=== PATIENT | female | born 1945 | race Caucasian/White ===

== ENCOUNTER → 2023-02-07 14:42 | Outpatient (BNVA) | payer MEDICARE, SELFPAY | PROVIDERS: PCP Family Medicine; Referring Provider Family Medicine; Visit Provider Student in an Organized Health Care Education/Training Program | DX: M17.11 Unilateral primary osteoarthritis, right knee (principal); M17.12 Unilateral primary osteoarthritis, left knee; M21.061 Valgus deformity, not elsewhere classified, right knee; M21.062 Valgus deformity, not elsewhere classified, left knee; Z96.642 Presence of left artificial hip joint | CPT/HCPCS: 99203 ==

== ENCOUNTER 2023-03-31 02:09 | Outpatient (CLI) | payer MEDICARE, SELFPAY ==
[2023-03-31 14:40] LABS: HCT 39.9 % (36.0-46.0); HGB 14.1 g/dL (11.2-15.7); MCH 36.6 pg (27.0-33.0); MCHC 35.3 % (32.0-36.0); MCV 104 fL (80-95); MPV 11.2 fL (8.0-11.0); Platelet Count 220 10^3/uL (130-400); RBC 3.85 10^6/uL (3.93-5.22); RDW 12.1 % (11.7-14.6); WBC 5.74 10^3/uL (4.4-10.8)
[2023-03-31 14:49] LABS: BUN 15 mg/dL (7-18); CREATININE 0.7 mg/dL (0.55-1.02); Calcium 10.3 mg/dL (8.5-10.1); Chloride 106 mmol/L (98-107); Estimated GFR 89.58 (mL/min/1.73m2); Glucose 99 mg/dL (74-106); Potassium 4.4 mmol/L (3.5-5.1); Sodium 143 mmol/L (136-145)
== END 2023-03-31 02:10 | disposition home or self-care (01) ==
PROVIDERS: PCP Family Medicine; Visit Provider Student in an Organized Health Care Education/Training Program
DX: M17.0 Bilateral primary osteoarthritis of knee (principal); Z01.818 Encounter for other preprocedural examination; M21.062 Valgus deformity, not elsewhere classified, left knee
CPT/HCPCS: 36415; 80048; 85027

== ENCOUNTER 2023-03-31 13:26 | Outpatient (CLI) | payer MEDICARE, SELFPAY ==
--- NOTE | 2023-03-31 12:15 | DI.RAD_ITS ---
Exam(s) XR KNEE LT 1V XR STANDING ALIGNMENT EXAM: XR STANDING ALIGNMENT and XR knee LT 1 V CLINICAL HISTORY: PRE OP L TKA. TECHNIQUE: 2D digital imaging was performed. Five images were obtained. COMPARISON: CR ORTHO KNEE LASHONDA 4+VIEWS from 12/09/2021 CR XR KNEE LT 1V from 03/31/2023 FINDINGS: BONES: The patient has a left total hip replacement which appears in good position. Mild degenerativ e changes are seen in the right hip. Coarse calcifications are seen in the pelvis likely reflecting a degenerating uterine fibroid. There are marked degenerative changes of the knees bilaterally julieta cterized by joint space narrowing and periarticular spurring. The findings are most marked in the la teral femoral tibial joints of both knees. There is a small joint effusion in the left knee. Joint space narrowing and periarticular spurring is also seen at the patellofemoral joint. There is bilate ral genu varus. The ankles are well maintained.There is no significant leg length discrepancy. SOFT TISSUE: Normal. IMPRESSION: Marked osteoarthritis of the knees bilaterally. DATA REPOSITORY: RADIATION DOSE DELIVERED:
== END 2023-03-31 13:27 | disposition home or self-care (01) ==
LOC: DIORS 13:26
PROVIDERS: PCP Family Medicine; Visit Provider Physician Assistant
DX: M17.12 Unilateral primary osteoarthritis, left knee (principal); Z01.818 Encounter for other preprocedural examination
CPT/HCPCS: 73560; 77073

== ENCOUNTER → 2023-04-01 10:52 | Outpatient (CLI) | payer MEDICARE, SELFPAY ==
--- NOTE | 2023-04-01 09:00 | DI.US_ITS ---
APPROVED REPORT EXAM: Comprehensive 2D, Doppler, and color-flow Echocardiogram Patient Location: Out-Patient [facility] Feeder: Wilfrido Alcantara RDCS (AE) Indications: preop, murmur Other Information Study Quality: Good Conclusion Normal left ventricular wall thickness and chamber size. Ejection fraction is 55%. Wall motion is n ormal Normal right ventricular size and systolic function Both atria are moderately dilated Trileaflet aortic valve without stenosis or regurgitation Mildly thickened mitral leaflets with systolic prolapse and moderate to severe regurgitation Normal tricuspid valve with moderate regurgitation. Estimated right ventricular systolic pressure is 27 mmHg Small pericardial effusion Wall motion Left Ventricle The left ventricle is normal size. Left ventricular systolic function is normal Borderline concentric left ventricular hypertrophy. There is normal LV segmental wall motion. There is no ventricular sept al defect visualized. LVEF is 55%. Right Ventricle The right ventricle is normal size. The right ventricular systolic function is normal. The RVSP is 26 .7 mmHg. Atria Left atrium is moderately dilated. Right atrium is moderately dilated. The interatrial septum is inta ct with no evidence for an atrial septal defect. Aortic Valve The aortic valve is normal in structure. Aortic valve is trileaflet. There is no aortic valvular sten osis. No aortic regurgitation is present. Mitral Valve mildly thickened mitral leaflets No evidence of mitral valve stenosis. Moderate to severe mitral regu rgitation Mild mitral valve prolapse. Tricuspid Valve The tricuspid valve is normal in structure. There is no tricuspid valve stenosis. Moderate tricuspid regurgitation. Pulmonic Valve The pulmonary valve is normal in structure. There is no pulmonic valvular stenosis. Mild pulmonic reg urgitation. Great Vessels The aortic root is normal in size. The ascending aorta is mildly dilated. Aortic arch is normal in ca liber. IVC is normal in size and collapses >50% with inspiration. Pericardium Small pericardial effusion. 2D Dimensions IVSD d PLAX 0.97 cm F: 0.6-1.0 Ao Root d 3.14 cm F: 2.7 - 3.3 LVPW d PLAX 1.04 cm F: 0.6 - 1.0 Ao Asc Diam d 3.47 cm F: 2.3 - 3.1 LVID d PLAX 4.90 cm F: 3.8 - 5.2 LVDs 3.53 cm F: 2.2 - 3.5 LV EF Teichholz 53.9 % FS 27.89 % LV EDV (Teich) 112.9 mL LV ESV (Teich) 52.1 mL Stroke Vol Index (Teich) 31.03 M-Mode TAPSE 1.99 cm (M/F) >1.7 Auto EF LV EDV A4C 113.8 mL LV EDV A2C 97.2 mL LV EDV BP 109.3 mL LV ESV A4C 56.8 mL LV ESV A2C 49.1 mL LV ESV BP 51.9 mL LVEF(%) A4C 50.1 % LVEF(%) A2C 49.5 % LVEF(%) BP 52.5 % LV SV A4C 57.0 ml LV SV A2C 48.1 ml LV SV BP 57.3 ml LV CO A4C 5.0 L/min LV CO A2C 5.0 L/min LV CO BP 5.0 L/min HR A4C 87.81 BPM HR A2C 103.46 BPM LV EDV Index (BP) LA Volume LA Length A4C 6.9 cm LA Length A2C LA Area A4C s 29.51 cm2 LA Area A2C s LA Vol A4C A-L 106.75 mL LA Vol A2C A-L LA Vol Biplane A-L LA Vol A4C MOD 99.5 mL LA Vol A2C MOD LA Vol BP MOD RA Volume RA Area A4C 21.2 cm2 RA ESV A4C (A-L) 62.4mL RA Vol/BSA A4C A-L RA Length A4C 6.1 cm RA ESV A4C (MOD) 59.9mL LV Diastology MV E' medial 0.113 (>0.07 m/s) MV E Vmax 0.94 (0.4-1.3 m/s) MV E/E' MED 8.32 (<14) MV E' lateral 0.137 (>0.1 m/s) MV E/E' LAT 6.86 (<14) MV E' Average 0.125 m/s MV E/E'(average) 7.52 Aortic Valve AoV Vmax 1.32 m/s LVOT Vmax 0.93 m/s AoV Peak Grad 7.0 mmHg LVOT Peak Grad 3.5 mmHg AoV Area (Vmax) 2.39 cm2 LVOT VTI 0.171 m AoV VTI 0.252 m LVOT Mean Grad 1.6 mmHg AoV Mean Ino. 0.87 m/s LVOT SV 57.83 mL AoV Mean Grad 3.6 mmHg LVOT Diam s 2.05 cm AoV Area (VTI) 2.29 cm2 Velocity Ratio 0.70 Mitral Valve MV DT 149 (160-240 msec) MR Vmax 5.53 m/s MV Vmax TIPS 0.97 m/s MR VTI 1.628 m MV Mean Grad 1.1 (<2mmHg) MR Peak Grad 122.4 mmHg MV VTI 0.261 m MR Mean Grad 92.3 mmHg MR PISA Radius 0.84 cm MR Aliasing Velocity 0.30 m/s Pulmonary Valve PV Vmax 0.76 (0.5-1.5 m/s) RVOT Vmax 0.61 m/s PV Peak Grad 2.3 mmHg RVOT Peak Gr. 1.5 mmHg PV Mean Ino 0.59 m/s RVOT VTI 0.135 m PV Mean Grad 1.5 mmHg RVOT Mean Gr. 0.7 mmHg Tricuspid Valve RA Pressure 3.00 mmHg TR Vmax 2.43 m/s TR Peak Grad 23.7 mmHg RVSP (TR) 26.7 mmHg
== END ==
PROVIDERS: PCP Family Medicine; Visit Provider Physician Assistant
DX: R01.1 Cardiac murmur, unspecified (principal)
CPT/HCPCS: 93306

== ENCOUNTER 2023-04-12 07:19 | Observation (INO) | payer MEDICARE, SELFPAY ==
--- NOTE | 2023-04-05 13:50 | PDOC.ANES ---
Date of service: 04/05/23 Time of Service: 13:50 Anesthesia Note Report Anesthesia Note: Discussed upcoming case with RUKHSANA Galvin who was looking for anesthesia reviewal of this patient given recent ECHO results. Reviewed and discussed ECHO results with Kelli Sharma and Santiago Dior and patient is cleared to proceed for upcoming surgery.
[2023-04-12] VITALS (17 sets, daily range): BP systolic 111–159; BP diastolic 68–106; PULSE 70–88; RESP 14–19; TEMP 36.2–36.8; O2SAT 80–99; BMI 24.0
[2023-04-12] MEDS: Acetaminophen 500 MG TAB 1000 MG PO ×3 (07:33→20:35)
[2023-04-12] MEDS: Gabapentin 300 MG CAP PO ×3 (07:33→20:34)
[2023-04-12] MEDS: Lactated Ringers 1,000 ML 80 ML IV ×2 (07:45→14:07)
--- NOTE | 2023-04-12 07:45 | W.ANESPRE ---
General Info Date of Service Date Performed: 04/12/23 Height: 5 ft 10.5 in Weight: 77 kg Body Mass Index (BMI): 24.0 Surgical Procedure: Operation Date: 04/12/23 09:55 Proposed Procedure Side Surgeon p Knee Total Arthroplasty w/OrthAlign, Cemented PS Left Jones Fragoso MD Actual Procedure Side Surgeon p Knee Total Arthroplasty w/OrthAlign, Cemented PS Left Jones Fragoso MD Pre-Op Diagnosis Post-Op Diagnosis Primary osteoarthritis of left knee Meds Allergies and Home Medications Allergies Allergy/AdvReac Type Severity Reaction Status Date / Time aspirin AdvReac GI BLEEDS Verified 04/12/23 07:27 Home Medication Medication Instructions Recorded ascorbate calcium (vitamin C) 500 500 mg PO DAILY 11/10/22 mg tablet cholecalciferol (vitamin D3) 125 125 mcg PO DAILY 11/10/22 mcg (5,000 unit) capsule ferrous sulfate 325 mg (65 mg 325 mg PO DAILY 11/10/22 iron) tablet lysine 500 mg tablet (L-Lysine) 500 mg PO DAILY 11/10/22 turmeric root extract 500 mg tablet 500 mg PO DAILY 11/10/22 vitamin B complex (B 1 tab PO DAILY 11/10/22 Complex-Vitamin B12 tablet) oxybutynin chloride 5 mg tablet 5 mg PO TID 02/07/23 calcium 600 mg-D3 20 mcg-magnesium 1 tab PO DAILY 03/31/23 40 [id number]-xzim-zinc chew tablet gabapentin 100 mg capsule 300 mg PO TID 03/31/23 garlic 1,000 mg capsule 1,000 mg PO DAILY 03/31/23 vitamin E (dl, acetate) 180 mg 180 mg PO DAILY 03/31/23 (400 unit) capsule acetaminophen 500 mg tablet 1,000 mg PO Q8H PRN pain #90 tabs 04/12/23 aspirin 81 mg tablet,delayed 81 mg PO BID 30 days #60 tabs 04/12/23 release celecoxib 200 mg capsule (Celebrex) 200 mg PO BID PRN #60 caps 04/12/23 dexamethasone 4 mg tablet 4 mg PO DAILY #2 tabs 04/12/23 docusate sodium 100 mg capsule 100 mg PO BID #30 caps 04/12/23 (Colace) oxycodone 5 mg tablet 5 mg PO Q4H PRN #18 tabs 04/12/23 pantoprazole 40 mg tablet,delayed 40 mg PO DAILY #14 tabs 04/12/23 release Current Visit Medications: Current Medications Generic Name Dose Route Start Last Admin Trade Name Taye PRN Reason Stop Dose Admin Acetaminophen 1,000 mg 04/12/23 06:00 04/12/23 07:33 Acetaminophen 500 Mg Tab PO 04/12/23 16:00 1,000 mg PREOP BRIDGER Administration Acetaminophen 1,000 mg 04/12/23 14:00 Acetaminophen 500 Mg Tab PO 05/12/23 13:59 TID BRIDGER Aspirin 81 mg 04/12/23 20:00 Aspirin E.C. 81 Mg Tabec PO 05/12/23 19:59 BID BRIDGER Celecoxib 200 mg 04/12/23 08:30 Celecoxib 200 Mg Cap PO 05/12/23 20:00 BID BRIDGER Dexamethasone 4 mg 04/13/23 08:30 Dexamethasone 4 Mg Tab PO 04/14/23 08:31 DAILY BRIDGER Docusate Sodium 100 mg 04/12/23 07:19 Docusate Sodium 100 Mg Cap PO 05/12/23 07:18 BID PRN PRN Constipation Gabapentin 300 mg 04/12/23 06:00 04/12/23 07:33 Gabapentin 300 Mg Cap PO 04/12/23 16:00 300 mg PREOP BRIDGER Administration Gabapentin 300 mg 04/12/23 22:00 Gabapentin 300 Mg Cap PO 05/12/23 21:59 HS BRIDGER Hydromorphone HCl 0.5 mg 04/12/23 07:19 Hydromorphone 2 Mg/Ml Syr IVP 05/12/23 07:18 Q2H PRN PRN Tranexamic Acid 1,000 mg/ 60 mls @ 360 mls/hr 04/12/23 06:00 Sodium Chloride IVPB 04/12/23 16:00 PREOP BRIDGER Ringer's Solution 1,000 mls @ 80 mls/hr 04/12/23 06:00 IV 05/11/23 23:59 INFUSION BRIDGER Cefazolin Sodium/Dextrose 2 gm in 50 mls @ 100 mls/hr 04/12/23 06:00 Ancef Duplex IVPB 05/11/23 23:59 PREOP BRIDGER Cefazolin Sodium/Dextrose 1 gm in 50 mls @ 100 mls/hr 04/12/23 08:00 Ancef Duplex IVPB 04/13/23 00:29 Q8H BRIDGER IV Miscellaneous Supplies 1 each 04/12/23 06:00 Iv Access IV 05/11/23 23:59 DIRECTED BRIDGER Ondansetron HCl 4 mg 04/12/23 07:19 Ondansetron 4 Mg/2 Ml Vial IVP 05/12/23 07:18 Q6H PRN PRN Nausea Oxycodone HCl 0 mg 04/12/23 07:19 Oxycodone 5 Mg Tab PO 05/12/23 07:18 Q3H PRN PRN Pain Pantoprazole Sodium 40 mg 04/13/23 07:30 Pantoprazole 40 Mg Tabcr PO 05/13/23 07:29 DAILY@0730 BRIDGER Polyethylene Glycol 17 gm 04/12/23 07:19 Polyethylene Glycol 3350 17 Gm Packet PO 05/12/23 07:18 BID PRN PRN Constipation Sodium Chloride 0 ml 04/12/23 06:00 Normal Saline Flush 10 Ml Syr IV 05/11/23 23:59 PRN PRN Sodium Chloride 0 ml 04/12/23 06:00 Normal Saline 10 Ml Vial IJ 05/11/23 23:59 DIRECTED PRN Sterile Water 0 ml 04/12/23 06:00 Water,Injection,Sterile 10 Ml Vial IJ 05/11/23 23:59 DIRECTED PRN PFSH Active Problems Active Problems: Problem Status Onset Code Migraines G43.909 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 genu valgum of left knee M21.062 Primary osteoarthritis of left knee M17.12 Osteoarthritis of right knee M17.11 Bilateral primary osteoarthritis of knee M17.0 Medical History Medical History Dislocation of left ankle joint with reported fracture of the left tibia treated conservatively Idiopathic peripheral neuropathy Bilateral Ulcerative colitis Denies any issues for the past 20 years; 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 Varicose veins of legs Surgical History Surgical History History of hip replacement, total DOS 02/19/20 History of laparoscopic appendectomy DOS 04/10/19 Tobacco Smoking/Tobacco Use Status: Never Alcohol Alcohol Intake: never Substance Use Substance use: Never Substance use type: does not use Vital Signs and Lab Results Vital Signs Most Recent Vital Signs in EMR: Most Recent Vital Signs Temp Pulse Resp BP Pulse Ox 36.7 C 71 17 159/79 H 96 04/12/23 07:11 04/12/23 07:11 04/12/23 07:11 04/12/23 07:11 04/12/23 07:11 Lab Results Blood Type / Crossmatch: No Data to Display Complete Blood Count: White Blood Count 5.74 10^3/uL (4.4-10.8) 03/31/23 14:15 Red Blood Count 3.85 10^6/uL (3.93-5.22) L 03/31/23 14:15 Hemoglobin 14.1 g/dL (11.2-15.7) 03/31/23 14:15 Hematocrit 39.9 % (36.0-46.0) 03/31/23 14:15 Platelet Count 220 10^3/uL (130-400) 03/31/23 14:15 Complete Metabolic Panel: Sodium 143 mmol/L (136-145) 03/31/23 14:15 Potassium 4.4 mmol/L (3.5-5.1) 03/31/23 14:15 Chloride 106 mmol/L (98-107) 03/31/23 14:15 Carbon Dioxide 29.0 mmol/L (21.0-32.0) 03/31/23 14:15 BUN 15 mg/dL (7-18) 03/31/23 14:15 Creatinine 0.7 mg/dL (0.55-1.02) 03/31/23 14:15 Est GFR (CKD-EPI 2020) 89.58 (mL/min/1.73m2) 03/31/23 14:15 Calcium 10.3 mg/dL (8.5-10.1) H 03/31/23 14:15 Glucose 99 mg/dL (74-106) 03/31/23 14:15 Liver Function Panel: No Data to Display Coagulation Panel: No Data to Display Cardiac Panel: No Data to Display Arterial Blood Gas: No Data to Display Venous Blood Gas: No Data to Display Pancreas Panel: No Data to Display Thyroid Panel: No Data to Display Infectious Disease: No Data to Display Blood Cultures: No Data to Display Toxicology Panel: No Data to Display Imaging and Studies Imaging and Studies Study information below may be from another EMR and interpreted by another provider. Please see original notes in EMR for more complete details. Echocardiogram Summary: Conclusion Normal left ventricular wall thickness and chamber size. Ejection fraction is 55%. Wall motion is normal Normal right ventricular size and systolic function Both atria are moderately dilated Trileaflet aortic valve without stenosis or regurgitation Mildly thickened mitral leaflets with systolic prolapse and moderate to severe regurgitation Normal tricuspid valve with moderate regurgitation. Estimated right ventricular systolic pressure is 27 mmHg Small pericardial effusion 04/01/23 Anesthesia Assessment and Plan Anesthesia History Personal History: No History of Anesthesia Complications Family History: No Family History of Anesthesia Complications Exercise Tolerance Exercise Tolerance: Metabolic Equivalents>4 Pertinent Negatives Pertinent Negatives: No Symptoms of GERD, No Major Cardiovascular Symptoms or Complaints, No Major Pulmonary Symptoms or Complaints and No History of CVA/TIA Cardiac & Pulmonary Exam Cardiac Exam: Normal S1/S2 Heart Sounds Pulmonary Exam: Clear Bilateral Breath Sounds Implantable Cardiac Device Does patient have a Pacemaker or an ICD?: No Airway Exam Known Difficult Airway: No Mallampati Class: 1 Mouth Opening: Normal (> 3cm) Thyromental Distance: Greater than 3 cm Neck Range of Motion: Full ROM Neck Circumference: Normal Teeth Condition: Normal Dentition ASA Classification ASA Score: ASA 2 Emergency Case?: No NPO Status NPO Status: NPO Clears >2 hours, Solids >8 hours Anesthesia Plan Resuscitation Status: Full Code Anesthesia Technique: Spinal Anesthesia Airway Planned: Natural Airway Pain Management: Surgeon and patient request nerve block Monitors Used: Standard Monitors Preoperative Comments:: Noted occ PVC and PACs on preop ECG reading
--- NOTE | 2023-04-12 08:25 | W.ANESNERVE ---
Nerve Block Single Injection Procedure Date and Time Date Performed: 04/12/23 Procedure Start: 07:55 Location Where Procedure Performed Procedure Location: Day Surgery Unit Reason Performed: Postoperative Analgesia Requesting Provider: Jones Fragoso Timeout Performed Timeout Performed: Yes Monitoring Used ECG, Blood Pressure, SpO2 and See EMR for corresponding vital signs Sterility Sterility: Hand Hygiene, Surgical Cap, Surgical Mask, Sterile Gloves, Sterile Drape/Sheet and Chlorhexidine Sedation Given During Procedure Sedation Given (Indicate Dose Given): No Sedation given Patient Mental Status Patient Mental Status: Awake Nerve Block 1st Nerve Block: Laterality: Left Block Type: Adductor Canal Ultrasound Image Saved?: Yes Needle / Catheter Used: 100mm SonoPlex II Local Anesthetic Bolus (Indicate Dose Given): Lidocaine used for local infiltration of skin, Injected in 3-5ml increments after negative blood aspiration and Bupivacaine 0.25% Dose:: 15 ml Additives (Indicate Dose Given): None Ultrasound: Sterile probe cover and gel used Nerve Stimulator: Not Used Paresthesia: None Procedure Tolerated: No Complications and Patient tolerated well Procedure Outcome: Successful Performed By: Jie Dior
[2023-04-12] MEDS: ceFAZolin 2 GM/50 ML BAG IVPB (08:48)
--- NOTE | 2023-04-12 09:45 | RT.EKG_ITS ---
APPROVED REPORT Exam: Resting ECG Reason for Exam: Irregular heart rate intraop Patient Location: O HR:80 bpm ECG Measurements Heart Rate 80 AXIS ID [id number] P [id number] QRSd 106 QRS -17 QT 385 T [id number] QTc 445 Conclusion Atrial fibrillation...V-rate 70-102, irreg A-activity Low voltage, extremity leads...all extremity leads <0.5mV Nonspecific T abnormalities, inferior leads...T <-0.10mV, II III aVF
[2023-04-12] MEDS: HYDROmorphone 2 MG/ML SYR IVP ×2 (11:39→11:57)
[2023-04-12] MEDS: Normal Saline 10 ML VIAL IJ (11:39)
--- NOTE | 2023-04-12 12:05 | ROE_ITS ---
Date of service: 04/12/23 Time of Service: 10:30 Operative Note Operative Note DATE OF PROCEDURE: 04/12/23 PRE-OP DIAGNOSIS: Left Knee Arthritis with Valgus Deformity POST-OP DIAGNOSIS: same PROCEDURE: LEFT Total Knee Arthroplasty with Intraoperative Navigation SURGEON: Jones Fragoso [employer] MEMBER: Jessica Cook ANESTHESIA TYPE: Spinal Refer to Anesthesia Record ESTIMATED BLOOD LOSS: 150 PATHOLOGY: none sent COMPLICATIONS: None Patient was transported to: PACU Patient's condition: stable Implants: 1. Depuy Attune Posterior Stabilized Femoral Component, Size 6 2. Depuy Attune Fixed Bearing Tibial Component, Size 5 3. Depuy Attune 6x10 FB/PS Poly 4. Depuy Attune Patellar Component, Size 35 Indications: I have seen Mandy in clinic for symptoms of knee arthritis, confirmed with radiographic findings. Mandy has exhausted nonoperative methods and was having significant limitations in daily function and desired better function and less pain. I discussed the technical details of a knee replacement. I explained the risks of the procedure to include, but not limited to, bleeding, infection, pain, stiffness, fracture, damage to nerves and vessels, damage to muscles and tendons, loosening, need for repeat procedure, blood clot and cardiopulmonary demise. Despite these risks, Mandy elected to proceed. Findings: There was significant signs of arthritis throughout the knee involving all 3 compartments with a deficient lateral femur. Procedure Description: Mandy was greeted in the preoperative holding area where the correct side was identified and marked. The consent was reviewed with the patient and signed. The history and physical was updated. All questions were answered. Preoperative mediacations were administered: Acetaminophen 1000mg, Celebrex 400mg, and Gabapentin 300mg. An adductor canal block was then administered by the anesthesia team in the PACU. Mandy was taken back to the operating room. A spinal anesthestic was then administered. The patient was placed into the supine position on the operating room table. A nonsterile tourniquet was placed high onto the leg but only used for cementing. Posts were placed for positioning during the procedure. All bony prominences were well padded. Prophylactic antibiotics in the form of Cefazolin were administered. 1g of Tranxemic Acid was given intravenously within 30 minutes of incision. The left leg was then prepped with Chloraprep and draped in a standard fashion with impervious stockinette and extremity drape with Iodine impregnated skin protection. A timeout to confirm correct identity, side and site, procedure, allergies, anesthesia, and medical concerns was performed. With the knee in some flexion, a midline incision was made overlying the knee. Full thickness skin flaps were raised once the extensor mechanism was encountered. These were raised medially and laterally. Any bleeding was controlled with electrocautery. Once the extensor mechanism was fully exposed, a medial parapatellar arthrotomy was performed in a flexed position. All bleeding from the arthrotomy and the geniculate arteries was coagulated. A medial subperiosteal peel was performed with electrocautery to the midcoronal plane. The fat pad was removed while keeping the patellar tendon protected. The anterior distal femur synovium was removed for later visualization. The ACL and PCL were resected and the anterior horn of the lateral meniscus was transected. The knee was then flexed with the patella everted. Large osteophytes from the tibia were removed. Large osteophytes from the femur were removed. There was some hypoplasia of the lateral femoral condyle and any remnant cartilage of the medial femoral condyle was removed for appropriate thickness. A single starting pin was then placed 1cm anterior to the PCL insertion and the notch in the direction of the femoral head. The OrthoAlign device was applied over the pin. It was oriented to be in line with the epicondylar axis and the trochlear groove. It was then pinned into place. The navigation computer was then turned on and calibrated. The distal femur cut was set at 0 degrees varus/valgus and 3.5 degrees flexion. The distal femur cutting guide then was positioned for a 9mm cut. The distal femur was cut with an oscillating saw while protecting the soft tissues. The tibia was then addressed. The OrthoAlign device was placed over the tibial tubercle and medial tibia and secured into position. Once again, OrthoAlign was calibrated and then set for a 1 deree varus cut and 3 degrees of posterior sl ope. With this locked into position, the cut thickness stylus was used to assess cut thickness. The lateral side, most involved side, was set for a 4mm cut. This was then held in position and pinned into place with 2 additional pins and a cross pin for stability. The medial and lateral collateral ligaments were protected and the cut was performed. With this completed, it was assessed and noted to be of appropriate dimensions. The guide and OrthoAlign was removed. A spacer block was inserted and the knee was brought into extension. The 8mm spacer block provided full extension, without hyperextension and with stability of both the medial and lateral collateral ligaments was assessed. The pins from the femur and the tibia were then removed. The gap balancing device from the Ortholign was then utilized to help balance the extension and flexion gaps. Once the extension gap was measured the attune specific guide was attached and flexion gap was set to balance and equal in the extension gap. This was pinned into position. The sizing guide for the distal femur was then placed. This indicated a size 6 femur. The 4-in-1 cutting guide was the placed. The posterior medial femur cut was evaluated and appeared of good thickness. The spacer block was inserted underneath the cutting guide and stability was confirmed in 90 degrees of flexion. An eileen wing was used to confirm appropriate position of the anterior cut to avoid notching. This cutting guide was ensured to be flush on the cut surface and then pinned into place with headed pins. While protecting the soft tissues, quad tendon, and collateral ligaments, the anterior and posterior cuts were performed with a saw. The central two pins were removed and the posterior and anterior chamfers were cut next. The notch-cutting guide was placed. This was pinned to lateralize the femoral component as much as possible while keeping it flush on the cut surface. This was then pinned into position. A reciprocating saw was used to make the notch cut. A rasp smoothed the cut surfaces. A trial posterior stabilized femoral component was then inserted, impacted down to the cut surfaces, and the lug holes were drilled. A provisional trial tibial component was placed and the knee was brought through range of motion. The polyethylene was trialed until there was good flexion and extension with excellent stability to the medial and lateral collaterals. The patella was tracking without thumbs. The tibial cut surface was fully exposed. The medial and lateral menisci were removed. The tibia was then sized as a 5. The tibia had been previously marked during trialing to correspond to the center of the tibial component to help with rotation. The trial was aligned to this cesar, approximately rotated to the medial 1/3rd of the tibial tubercle. The trial was pinned into place. The tibia was prepared with a reamer and a keel punch. The knee was then brought into extension and the patella was measured as 25mm. Using the patellar clamp and cut guide, this was resected to a flat surface with at least 13mm of thickness remaining. The size 35 patella fit the best. This was oriented and then clamped into position. The lugs were drilled. The trial components were removed. The final components, except for the polyethylene were opened on the back table. The periosteal and capsular tissues, especially posteriorly, around the knee were then systematically injected with a periarticular cocktail consisting of 246mg of Ropivacaine, 0.5mg of Epinephrine, 0.08mg of Clonidine, and 30mg of Ketorolac, diluted to 100cc. The tourniquet was then inflated to 275mmHg. The knee was thoroughly irrigated with a pulse lavage and dried. On the back table, with the implants opened, the cement was mixed. 2 batches of medium viscosity cement were prepared with vacuum assistance. After the cement was ready a small amount was placed on to the back side of the tibial component at the keel. A small amount was placed onto the posterior flange of the femur. Cement was manual pressurized and impregnated into the cut surface of the tibia. The tibial component was then inserted into the cut surface and impacted into position. Excess cement was removed and the component was reimpacted. Again, excess cement was removed and our attention was then turned to the femur. The femoral cut surface was once again dried and cement was manually impacted into the cut surface. The femoral component was lined with the lug holes and impacted. Excess cement was removed. It was ensured to be down against the cut surface. The trial polyethylene was then inserted and the leg was brought out into full extension for the duration of the cement curing process, approximately 18min. Cement was lastly manually impacted into the cut surface of the patella and the patellar button was clamped into position and held. During this process attention was turned to the gutters of the knee and for all interfaces for any excess cement. The knee was thoroughly irrigated with Surgiphor betadine solution. It was allowed to sit in the wound for 3 minutes before being irrigated out with saline. After the cement had finally cured, approximately 18min, the clamp was removed from the patella and the knee was taken through range of motion. A size 10mm polyethylene component provided the best range of motion and stability with less than 2mm gapping with medial and lateral stress and full extension without significant hyperextension. The patella was tracking with a no-thumbs technique. The trial poly was removed and once again the knee was checked for any loose, excess, or errant cement. The poly component was then inserted and impacted into position after cleaning and drying the tibial tray. The capsule was then reapproximated with a No. 1 Vicryl at multiple locations. The capsule was finally closed with a No. 2 Stratafix, barbed suture. The tourniquet was then released and the arthrotomy appeared watertight without significant bleeding. The second dosing of 1g TXA was started. Deep tissues were then reapproximated with 0 Vicryl and 2-0 Monocryl. The skin was closed with a running 3-0 Monocryl in a subcuticular fashion. This was reinforced with skin glue. A Mepilex silver dressing was applied along with a [id number] VICKI wrap. A CryoCuff was applied. Mandy was transferred to the hospital bed without difficulty an suffering no apparent complication. Mandy has a good prognosis. Physical therapy will start today and without restrictions, weight-bearing as tolerated. Aspirin 81mg BID will be used for DVT prophylaxis.
--- NOTE | 2023-04-12 13:30 | W.ANESPOSTOP ---
Postoperative Evaluation Date, Time and Location Date Performed: 04/12/23 Time Performed: 12:25 Patient Location: PACU Vital Signs Most Recent Imported Vital Signs: Most Recent Vital Signs Temp Pulse Resp BP Pulse Ox 36.3 C L 86 16 144/84 H 95 04/12/23 12:41 04/12/23 12:41 04/12/23 12:25 04/12/23 12:41 04/12/23 12:41 Pain Score Most Recent Pain Score: Most Recent Pain Score Pain Level 0 04/12/23 12:41 Assessment Mental Status: Awake (Alert & Oriented to Patient Baseline) Airway and Respiratory Function: Patent airway with normal (patient baseline) respiratory exam Cardiovascular Function: Hemodynamically Stable Hydration Status: Adequately Hydrated Nausea & Vomiting: No Nausea or Vomiting Pain: Pain is tolerable per patient Peripheral Nerve Block: Regional nerve block not resolved at time of post operative discharge Postoperative Comments:: EKG obtained postop to document Atrial Fibrillation. Hx of A fib 5 yrs ago. Rate controlled. VSS
--- NOTE | 2023-04-12 13:45 | IN_ITS ---
PT Notes Visit Reasons: Left knee DJD Physical Therapy Inpatient Initial Evaluation Date: 04/12/2023 Referring Doctor: RUKHSANA Chilel PT Orders: PT CONSULT: S/P Ortho Surgery Precautions: Fall. Standard. Activity as tolerated. Patient Profile/Admitting Diagnosis: Regine is a 77-year-old female with degenerative joint disease of the left knee and is status post left total knee arthroplasty on postoperative day 0. 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 History of hip replacement, total DOS 02/19/20 History of laparoscopic appendectomy For for DOS 04/10/19 Social History/Home Situation: Lives alone in a private home with a ramp to enter. Modified independent with the use of a single-point cane prior to surgery. recently passed change in 2021. Retired teacher. Equipment Owned/DME: SPC, FWW Subjective: Reported mild lightheadedness upon sitting up at edge of bed. Complained of 1?2/10 pain in the left knee at rest and with movement. Denies chest pain, and headache throughout session. Looking forward to eating something as she has not had anything to eat since last night. Agreeable to walking from edge of bed to chair for her meal and then to a second session later in the hallway once she has put something in her tummy. Objective: General Observation: Resting in bed. IV through the right UE. VICKI wraps to left. Cryocuff to left knee. Mental Status: Alert and oriented as to person, place, time, and purpose. Able to pay attention, focus, and respond appropriately. Pain: 1?2 left knee/10 in Vital Signs: Closely monitored by nursing staff ROM: Right Lower Extremity: Hip flexion WFL. Hip abduction WFL. Knee flexion WFL. Ankle dorsiflexion WFL. Ankle plantarflexion WFL. Left Lower Extremity: Hip flexion WFL. Hip abduction WFL. Knee flexion 10 to 100 degrees. Knee extension -10 degrees. Ankle dorsiflexion WFL. Ankle plantarflexion WFL. Strength: Right Lower Extremity: Hip flexors 5/5. Hip abductors 5/5. Knee flexors 5/5. Knee extensors 4/5. Ankle dorsiflexors 4/5. Ankle plantarflexors 4/5. Left Lower Extremity: Hip flexors 4-/5. Hip abductors 4-/5. Knee flexors 3-/5. Knee extensors 3-/5. Ankle dorsiflexors 4/5. Ankle plantarflexors 4/5. Bed Mobility/Transfers: Supine to sit standby assist Sit to stand with contact guard assist using FWW with minimal cues provided to use B UE to push off from EOB Stand to sit with contact guard assist using FWW with minimal cues provided to use B UE to push off from EOB Bed to reclining chair minimal assist using FWW with minimal cues provided to use B UE to push off from EOB Gait: Instructed patient with level surface ambulation of 8 steps requiring minimal assist using FWW. Maricruz decreased. No LOB. No SOB. Minimal cues provided for AD management, limb advancement, and posture. Balance: Static Sitting: Normal Dynamic Sitting: Normal Static Standing: Fair Dynamic Standing: Fair Special Tests: Mobility Limitations Standardized Measure [facility] AM-PAC 6 clicks Basic Mobility Inpatient Short Form: Raw Score: 19 CMS Score: 42% deficit Informed Consent/Education: Patient was instructed in purpose of PT consult and plan of care. Agreeable to proceed with established PT POC to achieve personal goals. Trained patient with correct performance of exercises below to maximize motor control, joint flexibility, soft tissue extensibility of the L knee musculature. Supine quads sets x 5 with 5 sh Supine heels slides x 5 Supine ankle DF/PF x 10 Small range straight leg raise x 5 Seated marches x 5 Assessment: Patient requires use of a front wheeled walker to maximize independence and reduce fall risk while attempt session for use of front-wheeled walker. Patient presents with clinical signs and symptoms consistent with current/admitting diagnoses that have resulted to mobility limitations, gait instability, generalized weakness, and overall ADL decline as demonstrated by the following impairment level findings: 1. Decreased strength to L knee major muscle groups 2. Impaired sitting/standing balance 3. Impaired activity tolerance 4. Limitation of joint range of motion in L knee Impairments are contributing to the following functional limitations: 1. Decline in bed mobility skills 2. Decline in transfer skills 3. Difficulty with ambulation without assistive device and physical assistance 4. Increased completion time for mobility ADL performance 5. Increased risk for falls 6. Difficulty with managing steps alone safely Patient is assessed as a 05296 moderte complexity based on the following: History: 77-year-old female with past medical history as indicated above Examination: Demonstrable impairment in strength, balance, and mobility level with underlying impairments and functional limitations as exhibited above as well as deficit score of 42% utilizing the [facility] Mobility Inpa tient Short Form Presentation: Evolving Decision Makin moderate complexity Goals: Goals X1 week 1. Supine-Sit independent 2. Sit-Supine independent 3. Sit-Stand independent 4. Stand-Sit independent with FWW 5. Bed-Chair independent with FWWFWW 6. Chair-Bed independent with FWW 7. Independent gait on level surface with use of FWW for at least 300 feet without report of pain nor dyspnea 8. Independent with home exercise program 9. Good static and dynamic standing balance/tolerance Plan of Care/Treatment Plan: 1-2x/day, 7 days/week x 1 week. Plan of care has been reviewed with the ELECTROTYPE FINISHER providing the service under Physical Therapy direction. Initiate Physical Therapy intervention for pain management as needed, strengthening, bed mobility, transfers, gait, stairs, balance training, and use of assistive device. DISCHARGE RECOMMENDATIONS: [] Home with no services [] [] Home with services [specify] [X] Home with outpatient PT home when medically cleared by orthopedic surgeon. Recommend outpatient PT services in order to optimize functional mobility outcomes and facilitate return to independent community ambulation without an assistive device. [] SNF for continued rehabilitation [] [] [facility] Care [] [] SNF versus LTC based on ability to participate and progress [] TREATMENT CODE/TIME: 97923 x 27 minutes for 1 unit beginning at 13:18 PM. Thank you for the opportunity to participate in the care of this patient. Sophy Hernandez PT, DPT, CLT [facility] [place], [place]
[2023-04-12] MEDS: Oxybutynin 5 MG TAB PO ×2 (14:08→20:35)
[2023-04-12] MEDS: ceFAZolin 1 GM/50 ML BAG IVPB ×2 (14:08→22:44)
[2023-04-12] MEDS: Ondansetron 4 MG/2 ML VIAL IVP (15:04)
--- NOTE | 2023-04-12 15:29 | PT.INTREAT ---
Date of service: 04/12/23 Time of Service: 14:39 PT Notes Visit Reasons: Left knee DJD Inpatient Physical Therapy Treatment Note [facility] Date: 04/12/23 PRECAUTIONS: Fall, standard, activity as tolerated. WBAT LLE. SUBJECTIVE: Patient reports still feeling a little woozy. Denies dizziness, lightheadedness. States she just feels off. After walking 100 feet, reports nausea. RN Vanessa notified. Anti-nausea medication dispensed. OBJECTIVE: Patient sitting up in [facility]. Agreeable to therapy.? PAIN: Reports no pain, 0/10. VITALS: blood pressure 133/80 saO2 95% ? ? BED MOBILITY/TRANSFERS? Sit-stand: CGA. Patient verbally cues herself for hand placement. ? Stand-sit: CGA? Bed-Chair: CGA ? Chair-bed: [facility] Gait Training ([id number]): Direct one-on-one instruction and skilled instruction in: [x] employing an assistive device [] modified weight-bearing status [x] movement sequencing [x] turning and movement with proper form [x] Provided verbal cues for equipment management and technique [x] Provided instruction in gait pattern [] Patient education regarding pacing and breathing techniques to maximize activity tolerance? GAIT? Assistive Device: FWW? Weight bearing: WBAT Assist: CGA, wheelchair follow ? Distance:? 100 feet, seated rest x2? Deviation: Genu Varum RLE. Adequate step height. Adequate step length. Reduced jessy. Reports feeling nauseous. Once patient reports that she feels like she is going to throw up, her gait becomes disorganized, unsteady. LOB noted when turning, which patient recovers from. ? STAIRS: Patient ascends and descends 3x four inch steps and 2x six inch steps. Bilateral hand rails. Verbal cues for gait sequence. ? Therapeutic Exercises ([id number]): Direct one-on-one instruction in therapeutic exercises to develop strength, endurance, range of motion and flexibility. ? Exercises: 10x quad set, 5 second hold, 5 second release. Tactile cues to facilitate VMO activation 10x marching. Visual cue for greater activation of hip flexors. 10x LAQs 10x heel raises 10x toe raises. ? Provided skilled instruction in proper exercise performance Provided skilled manual cues to facilitate proper muscle recruitment and/or form. ASSESSMENT:? Patient becomes nauseous, has one episode of emesis after dose of anti nausea medication. After episode of emesis, patient reports feeling much better, however she feels she may not be safe at home. PLAN: Continue global strengthening per plan of care until patient is medically ready for discharge home, likely tomorrow. TREATMENT CODE/TIME: 45 minutes beginning at 14:39
[2023-04-12] MEDS: Celecoxib 200 MG CAP PO (20:34)
[2023-04-12] MEDS: oxyCODONE 5 MG TAB PO (20:34)
[2023-04-13] MEDS: Lactated Ringers 1,000 ML 80 ML IV (03:19)
[2023-04-13 03:28] VITALS: BP 110/59; PULSE 66; RESP 16; TEMP 36; O2SAT 95
[2023-04-13] MEDS: oxyCODONE 5 MG TAB PO (06:27)
[2023-04-13] MEDS: ceFAZolin 1 GM/50 ML BAG IVPB (06:27)
[2023-04-13] MEDS: Dexamethasone 4 MG TAB PO (07:55)
[2023-04-13] MEDS: Ferrous Sulfate 325 MG TAB PO (07:55)
[2023-04-13] MEDS: Celecoxib 200 MG CAP PO (07:59)
[2023-04-13] MEDS: Oxybutynin 5 MG TAB PO ×2 (07:59→15:03)
[2023-04-13] MEDS: Pantoprazole 40 MG TABCR PO (08:00)
[2023-04-13] MEDS: Acetaminophen 500 MG TAB 1000 MG PO ×2 (08:00→15:02)
[2023-04-13] MEDS: Gabapentin 300 MG CAP PO ×2 (08:00→15:03)
[2023-04-13 08:15] VITALS: BP 102/58; PULSE 60; RESP 16; TEMP 36.4; O2SAT 99
--- NOTE | 2023-04-13 10:44 | PDOC.CMIN ---
Date of service: 04/13/23 Time of Service: 10:44 Care Management Initial Assmt Initial Assessment REASON FOR HOSPITALIZATION:: Unilateral primary osteoarthritis, left knee PREVIOUS FUNCTIONAL STATUS/SOCIAL/FAMILY SUPPORTS:: Mandy lives alone at her single family [place] home in [place]. She is independent at baseline and drives. Mandy is very well established in her community. She doesn't have local family, but has several friends that are supportive. [employer] delivers her meds and groceries every Tuesday. Mandy would be interested in learning more about [facility] services and [facility] and is agreeable to a referral. CURRENT FUNCTIONAL STATUS:: Mandy was sitting in her recliner when CM met with her. She is awake and easily engages in conversation. Mandy shares that she has 2 steps to get into her house, and she has been in contact with her gudion who is planning on building her a ramp in the near future. ADVANCE DIRECTIVES:: None on file Has patient been provided with info about the portal/API?: Yes Did the patient sign up for the portal?: Yes (Prior admission) CODE STATUS:: Full Code INSURANCE COVERAGE / FINANCIAL ISSUES:: A[employer]na MCR A[employer]na Senior Sup. Insurance CURRENT HOME/COMMUNITY SERVICES/EQUIPMENT:: [employer] PRIMARY CARE PHYSICIAN:: Geoff Avery POTENTIAL DISCHARGE NEEDS:: Follow up appointments, evaluations for further needs PATIENT/FAMILY EDUCATION NEEDS:: Review discharge instructions, limitations, medications and plan to follow up with community providers. Discuss ask me three and goals of self care. ANTICIPATED BARRIERS TO DISCHARGE:: None identified TRANSPORTATION:: Via private vehicle with friend PLAN:: Anticipate Mandy will discharge home with outpatient PT when medically ready per provider. She will follow up with community providers and discharge plan of care as instructed. CM will follow. 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
[2023-04-13 11:37] VITALS: BP 100/64; PULSE 63; RESP 16; TEMP 36; O2SAT 98
--- NOTE | 2023-04-13 12:33 | DSE_ITS ---
Date of service: 04/13/23 Time of Service: 12:32 DS: Diagnosis Discharge Diagnosis (1) Primary osteoarthritis of left knee: Status: Chronic (2) Acquired genu valgum of left knee: Status: Chronic Discharge Plan Disposition Patient Disposition: Home W/Home Health Services Condition: Good Discharge Details Reason For Visit: Left knee DJD Admit Date/Time: 04/12/23 07:19 Admit Provider: Jones Fragoso Attending Provider: Jones Fragoso [facility]: Patient was admitted to the medical/surgical floor following the procedure. The surgery was tolerated well without any notable medical, surgical, or anesthetic complications. Mobilization began postoperatively. She was voiding spontaneously. Vitals were stable. Physical therapy worked with the patient and was cleared for discharge home. No acute medical issues. Pain was controlled on oral regimen. Home Meds and New Rx's Prescriptions: New aspirin 81 mg tablet,delayed release (DR/EC) 81 mg PO BID 30 Days Qty: 60 0RF acetaminophen 500 mg tablet 1,000 mg PO Q8H PRN Qty: 90 0RF Rx Instructions: Take two tablets up to every 8 hours as needed for pain dexamethasone 4 mg tablet 4 mg PO DAILY Qty: 2 0RF Rx Instructions: Take one tablet once daily for two days docusate sodium [Colace] 100 mg capsule 100 mg PO BID Qty: 30 0RF pantoprazole 40 mg tablet,delayed release (DR/EC) 40 mg PO DAILY Qty: 14 0RF oxycodone 5 mg tablet 5 mg PO Q4H MDD 30mg PRN (Reason: pain) Qty: 18 0RF Rx Instructions: Take one tablet up to every 4 hours as needed for severe postoperative pain celecoxib [Celebrex] 200 mg capsule 200 mg PO BID PRN (Reason: pain) Qty: 60 0RF Rx Instructions: Take one tablet twice daily for pain and inflammation Continued oxybutynin chloride 5 mg tablet 5 mg PO TID Ca carb-D3-mag wc-rpj-qnyp-Zn 600 mg-20 mcg- 40 mg-0.25 mg tablet,chewable 1 tab PO DAILY garlic 1,000 mg capsule 1,000 mg PO DAILY vitamin E (dl, acetate) 180 mg (400 unit) capsule 180 mg PO DAILY vitamin B complex [B Complex-Vitamin B12] Tablet 1 tab PO DAILY ferrous sulfate 325 mg (65 mg iron) tablet 325 mg PO DAILY lysine [L-Lysine] 500 mg tablet 500 mg PO DAILY turmeric root extract 500 mg tablet 500 mg PO DAILY ascorbate calcium (vitamin C) 500 mg tablet 500 mg PO DAILY cholecalciferol (vitamin D3) 125 mcg (5,000 unit) capsule 125 mcg PO DAILY gabapentin 100 mg capsule 300 mg PO TID Discontinued echinacea 400 mg capsule 400 mg PO TID Rx Instructions: administer with meals acetaminophen 325 mg tablet 650 mg PO Q6H PRN Discharge Instructions Additional Instructions: Total Knee Discharge Instructions Activity: The most important activity is to walk and to work on gentle motion (both flexion and extension). You should try to take short walks a few times a day. It is important that when resting you work on keeping the knee straight. Avoid putting a pillow behind the knee as this will encourage flexion. Work on range of motion exercises as provided by Physical Therapy. - Start outpatient physical therapy within 2 weeks. - You should wear the PAKO hose on both legs for 2 weeks. You may remove these at night. You may also use any compression sock in place of the PAKO hose. - Utilize [employer] to review exercises, see videos on exercises and obtain basic information pertaining to your surgery and your recovery. Dressing: Remove the Familia wrap by 2 days after your surgery and put on the PAKO stocking given to you from the hospital. Keep the surgical dressing (underneath the FAMILIA wrap) in place for at least one week. After the first week it may be removed and replaced with light gauze and tape or nothing. The wound and dressing may get wet after 3 days but avoid soaking the dressing or otherwise it will need to be changed. Many people prefer covering the dressing with cling wrap (saran wrap) to minimize it from getting soaked. If it gets wet, just pat sven arora. If it starts to peel off then it will need to be changed. Medications: - You should take Tylenol and anti-inflammatory Celebrex as your primary pain control medications. If the Celebrex is too expensive or not covered, please call the office for another alternative (Advil/Ibuprofen or Naproxen/Aleve) - You have been prescribed a stronger pain medication Oxycodone for breakthrough pain, take as needed as prescribed. - You have also been prescribed a stomach acid reduction agent Pantoprozole to help reduce stomach acid and reflux. - You have been prescribed Gabapentin to take at night for restlessness and nerve pain. - You will be taking Aspirin 81mg twice a day for DVT prevention unless instructed otherwise. - You have also been prescribed Decadron to take to control post-operative nausea and pain. You will start this tomorrow. - If you have constipation you should take Colace (which has been prescribed) or Miralax (which is available [id number]). It takes most people 3-4 days to have a bowel movement. - You may resume your supplements except for Echinacea which you will hold for 2 more weeks. Follow-up: 2 weeks If you have any acute concerns or questions, please do not hesitate to contact the office at [phone]. You may contact Dr. Fragoso with any questions after hours through the hospital at [phone] or on his cell phone at [phone]. 1. Encounter Date and Reason I certify that Mandy Wells was seen by Jones Fragoso MD on 04/12/23 and that I had a [id number]-[id number] encounter with this patient that meets the physician face to face encounter requirements. 2. Clinical Findings Supporting Skilled Need and Homebound Status I certify that home health services are medically necessary, include either intermittent senior care and/or physical/speech therapy, and that this patient is homebound in that absences from the home require considerable and taxing effort and are infrequent or of short duration, or are attributable to the need to receive medical care. [X] (a) Attached documentation from encounter provides clinical findings supporting skilled need and homebound status (including what assistance patient requires to leave the home). The encounter with the patient was in whole, or in part, for the following medical condition, which is the primary reason for home health care: Left knee DJD Long Term: Physical Therapy: Mandy will benefit from home health physical therapy. She has notable weakness and gait abnormalities following a left knee replacement. She has no formal restrictions. She should ambulate with assistive device. Focus initially would be on management of ADLs and mobilization around her house followed by range of motion and strengthening. Speech Therapy: Homebound: Mandy is homebound due to significant weakness and gait abnormalities following left knee replacement. She is unable to leave her home unassisted. 3. Certification and Authentication I certify that I composed the above information based on my clinical judgement relating to this patient's medical condition and, if applicable, clinical findings communicated to me by the NPP or inpatient physician who performed the Home Health Referral. All further orders will be obtained through Dr. Fragoso, Stand Alone Forms: Anesthesia Discharge InstAntonio, Miguel Angel.Nerve Block Instructions, Shelby Durant (DSU) Activity:: Activity as Tolerated Equipment/Supplies:: Walker Diet:: As Tolerated Discharge Orders Discharge Orders: Discharge Order (Routine); Ordered 04/13/23 Ordered By: Jones Fragoso DS: Summary Time Spent with Patient providing and/or coordinating discharge services: Less than 30 minutes Status at Discharge Functional status at discharge: uses cane/walker Overall status at discharge: patient is progressing back to baseline Mental Status: mental status grossly normal Speech and Movement: speech and movement normal Mood: congruent mood Affect: normal affect Exam Narrative Exam Narrative: No acute distress. Sitting up in the chair. Alert and orient x3. Left lower extremity dressings clean dry and intact. She is active knee extension. She is active ankle dorsiflexion plantarflexion. Sensation intact to light touch over the deep and superficial peroneal nerve. Psych Mental Status: mental status grossly normal Speech and Movement: speech and movement normal Mood: congruent mood Affect: normal affect DS: Data Vitals/I&O Vitals and I&O: Vital Signs Temperature 98.1 F 04/12/23 07:11 Pulse 71 04/12/23 07:11 Pulse Rhythm Regular 04/12/23 07:11 Respiratory Rate 17 04/12/23 07:11 Respiratory Depth Normal 04/12/23 07:11 Blood Pressure 159/79 H 04/12/23 07:11 Pulse Oximetry 96 04/12/23 07:11 Oxygen Delivery Method Room Air 04/12/23 07:11 Oxygen Flow Rate 0 04/12/23 07:11 Pain Level 0 04/12/23 07:11 Intake & Output 04/11/23 04/11/23 04/12/23 11:59 23:59 11:59 Weight 170 lb 169 lb 12.095 oz 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) Primary osteoarthritis of left knee (Chronic) Osteoarthritis of right knee (Acute) Bilateral primary osteoarthritis of knee (Acute) Medical History Dislocation of left ankle joint with reported fracture of the left tibia treated conservatively Idiopathic peripheral neuropathy Bilateral Ulcerative colitis Denies any issues for the past 20 years; 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 Varicose veins of legs Surgical History History of hip replacement, total DOS 02/19/20 History of laparoscopic appendectomy DOS 04/10/19 Social History Smoking/Tobacco Use Status: Never Smoking risk assessment performed?: Yes Alcohol Intake: never Drug use: Never Substance use type: does not use Housing: house Do you feel safe at home: Yes Do you feel safe in your relationship?: Yes Time Spent with Patient Time Spent with Patient: <45 minutes Time was spent: obtaining and/or reviewing separately otained hiistory, ordering medications,tests, procedures, counseling the patient and care coordination
--- NOTE | 2023-04-13 13:53 | PTTR_ITS ---
Date of service: 04/13/23 Time of Service: 09:42 PT Notes Visit Reasons: Left knee DJD Inpatient Physical Therapy Treatment Note [facility] Date: 04/13/23 PRECAUTIONS: Fall, standard, activity as tolerated. WBAT LLE. SUBJECTIVE: Patient feeling much better than yesterday. No nausea. No more emesis. Slept well, ate a good breakfast, eager to go home. OBJECTIVE: Supine in bed, agreeable to therapy.? PAIN: 3/10 in left knee VITALS: monitored by nursing staff. ??? BED MOBILITY/TRANSFERS? Rolling L/R: Independent Supine-sit: Independent ? Sit-supine: Independent ? Sit-stand: Independent ? Stand-sit: Independent ? Bed-Chair: Independent with FWW ? Chair-bed: Independent with FWW ? Therapeutic Exercises ([id number]): Direct one-on-one instruction in therapeutic exercises to develop strength, endurance, range of motion and flexibility. ? Exercises: Issued HEP protocol for early hip and knee post op including 3x10 of the following: * Heel slides * SLRs * LAQ's * Quad sets * Glute sets * ankle pumps * ankle rotations * seated knee flexion stretch ?Ambulation ? Assistive Device: FWW? Weight bearing: WBAT Assist: SBA? Distance:? 300 feet ? Deviation: Slightly antalgic gait pattern. Genu Varum right knee. ? Provided skilled instruction in proper exercise performance Provided skilled manual cues to facilitate proper muscle recruitment and/or form: Reviewed HEP to ensure that patient could understand and safely perform each exercise. ASSESSMENT:? Patient tolerates therapy well. PLAN: Continue global strengthening per plan of care until patient is medically ready for discharge. TREATMENT CODE/TIME: 18 minutes beginning at 9:42
--- NOTE | 2023-04-13 14:27 | CMDISCH_ITS ---
Date of service: 04/13/23 Time of Service: 14:27 LACE Index Scoring Tool Questions: Length of Stay (in days): 1 Was the patient admitted via the E.D.?: No E.D. Visits: 0 Answers: Total Score: 1 Risk of Readmission: Low Risk Care Management Discharge Plan Reason for Hospitalization: Unilateral primary osteoarthritis, left knee Discharge Plan: Mandy is discharged home via private vehicle with a friend. New O/E VNA services are ordered. Mandy will follow up with community providers and her discharge plan of care as instructed. Patient/Family Education Needs: Review discharge instructions, limitations, medications and plan to follow up with community providers. Discuss ask me three. Services Needed at Discharge: [facility] ([facility] RN services. CM notified. )
--- NOTE | 2023-04-13 15:57 | CHAPLAIN ---
Mandy was waiting to be discharged when I stopped in. She lives in [facility] and was waiting to notify friends about when she could be picked up.
== END 2023-04-13 15:54 | disposition home health service (06) ==
LOC: SUR 11:19 → MS 13:10
PROVIDERS: Admitting Provider Student in an Organized Health Care Education/Training Program; PCP Family Medicine; Visit Provider Student in an Organized Health Care Education/Training Program
PROC: (CPT 27447; principal; 2023-04-12 09:45)
DX: M17.12 Unilateral primary osteoarthritis, left knee (principal); M21.062 Valgus deformity, not elsewhere classified, left knee; G43.909 Migraine, unspecified, not intractable, without status migrainosus; I83.93 Asymptomatic varicose veins of bilateral lower extremities; G62.9 Polyneuropathy, unspecified
CPT/HCPCS: 27447; 20985; C1776; 76942; 97110; 97116; 97162; 93005; 93010; G0378; J0690; J1100; J1170; J2250; J2405; J8540

== ENCOUNTER 2023-04-25 15:19 | Outpatient (CLI) | payer MEDICARE, SELFPAY ==
--- NOTE | 2023-04-25 13:15 | DI.RAD_ITS ---
Exam(s) XR KNEE LT 1V XR STANDING ALIGNMENT EXAM: XR STANDING ALIGNMENT and XR knee LT 1 V CLINICAL HISTORY: 1ST POST OP L TKA. TECHNIQUE: 2D digital imaging was performed. Five images were obtained. COMPARISON: CR XR KNEE LT 1V from 03/31/2023 CR XR STANDING ALIGNMENT from 03/31/2023 FINDINGS: BONES: The patient has a left total hip replacement. Since the prior examination the patient has und ergone a left total knee replacement which appears in good position. No lucencies are seen in or abo ut the orthopedic hardware to suggest loosening or infection. The bones are normally mineralized. T he surrounding soft tissues are unremarkable. There are marked degenerative changes seen in the righ t knee characterized by joint space narrowing and osteophytes. The findings are most marked in the l ateral femoral tibial joint. The ankles are well maintained.The left lower extremity is slightly ximena edwin than the right lower extremity. There is a valgus deformity of the right knee. SOFT TISSUE: Normal. IMPRESSION: 1. Stable left total knee replacement. 2. Marked degenerative changes of the right knee. DATA REPOSITORY: RADIATION DOSE DELIVERED:
== END 2023-04-25 15:20 | disposition home or self-care (01) ==
LOC: DIORS 15:19
PROVIDERS: PCP Family Medicine; Referring Provider Family Medicine; Visit Provider Student in an Organized Health Care Education/Training Program
DX: Z96.652 Presence of left artificial knee joint (principal); Z47.1 Aftercare following joint replacement surgery
CPT/HCPCS: 73560; 77073

== ENCOUNTER → 2023-05-23 13:11 | Outpatient (BNVA) | payer MEDICARE, SELFPAY | PROVIDERS: PCP Family Medicine; Referring Provider Family Medicine; Visit Provider Student in an Organized Health Care Education/Training Program | DX: Z47.1 Aftercare following joint replacement surgery (principal); Z96.652 Presence of left artificial knee joint ==

== ENCOUNTER → 2023-07-04 13:20 | Outpatient (BNVA) | payer MEDICARE, SELFPAY | PROVIDERS: PCP Family Medicine; Referring Provider Family Medicine; Visit Provider Student in an Organized Health Care Education/Training Program | DX: Z47.1 Aftercare following joint replacement surgery (principal); Z96.652 Presence of left artificial knee joint ==

== ENCOUNTER 2023-11-11 01:31 | Outpatient (CLI) | payer MEDICARE, SELFPAY ==
[2023-11-11 12:01] LABS: HCT 41.5 % (36.0-46.0); HGB 13.9 g/dL (11.2-15.7); MCH 36.5 pg (27.0-33.0); MCHC 33.5 % (32.0-36.0); MCV 109 fL (80-95); MPV 11.6 fL (8.0-11.0); Platelet Count 184 10^3/uL (130-400); RBC 3.81 10^6/uL (3.93-5.22); RDW 12.2 % (11.7-14.6); RDW-SD 49.5 fL; WBC 5.23 10^3/uL (4.4-10.8)
[2023-11-11 12:50] LABS: Anion Gap 7.4 mmol/L (3-11); BUN 19 mg/dL (7-18); CO2 30.6 mmol/L (21.0-32.0); CREATININE 0.8 mg/dL (0.55-1.02); Calcium 10.3 mg/dL (8.5-10.1); Chloride 107 mmol/L (98-107); Estimated GFR 75.84 (mL/min/1.73m2); Glucose 95 mg/dL (74-106); Potassium 4.3 mmol/L (3.5-5.1); Sodium 145 mmol/L (136-145)
== END 2023-11-11 01:32 | disposition home or self-care (01) ==
LOC: LBO 01:32
PROVIDERS: PCP Family Medicine; Visit Provider Student in an Organized Health Care Education/Training Program
DX: M17.11 Unilateral primary osteoarthritis, right knee (principal); Z01.818 Encounter for other preprocedural examination; M21.061 Valgus deformity, not elsewhere classified, right knee
CPT/HCPCS: 36415; 80048; 85027

== ENCOUNTER 2023-11-15 07:25 | Observation (INO) | payer MEDICARE, SELFPAY ==
[2023-11-15] VITALS (17 sets, daily range): BP systolic 102–148; BP diastolic 58–83; PULSE 68–85; RESP 13–19; TEMP 35.9–37; O2SAT 88–99; BMI 24.9
--- NOTE | 2023-11-15 07:24 | ANES.PREOP_ITS ---
General Info Date of Service Date Performed: 11/15/23 Height: 5 ft 10.5 in Weight: 79.861 kg Body Mass Index (BMI): 24.9 Surgical Procedure: Operation Date: 11/15/23 09:25 Proposed Procedure Side Surgeon p Knee Total Arthroplasty w/OrthAlign, Cemented CR Right Jones Fragoso MD Meds Allergies and Home Medications Allergies Allergy/AdvReac Type Severity Reaction Status Date / Time aspirin AdvReac GI BLEEDS Verified 11/14/23 11:09 Home Medication Medication Instructions Recorded ascorbate calcium (vitamin C) 500 500 mg PO DAILY 11/10/22 mg tablet cholecalciferol (vitamin D3) 125 125 mcg PO DAILY 11/10/22 mcg (5,000 unit) capsule ferrous sulfate 325 mg (65 mg 325 mg PO DAILY 11/10/22 iron) tablet lysine 500 mg tablet (L-Lysine) 500 mg PO DAILY 11/10/22 turmeric root extract 500 mg tablet 500 mg PO DAILY 11/10/22 vitamin B complex (B 1 tab PO DAILY 11/10/22 Complex-Vitamin B12 tablet) oxybutynin chloride 5 mg tablet 5 mg PO TID 02/07/23 calcium 600 mg-D3 20 mcg-magnesium 1 tab PO DAILY 03/31/23 40 zy-kzluqe-izal-zinc chew tablet gabapentin 100 mg capsule 300 mg PO TID 03/31/23 garlic 1,000 mg capsule 1,000 mg PO DAILY 03/31/23 vitamin E (dl, acetate) 180 mg 180 mg PO DAILY 03/31/23 (400 unit) capsule docusate sodium 100 mg capsule 100 mg PO BID #30 caps 04/12/23 (Colace) apixaban 5 mg tablet (Eliquis) 5 mg PO BID 05/23/23 acetaminophen 500 mg tablet 1,000 mg (2 x 500 mg) PO TID #90 11/11/23 tabs atorvastatin 40 mg tablet 40 mg PO DAILY 11/11/23 celecoxib 200 mg capsule 200 mg PO BID #60 caps 11/11/23 dexamethasone 4 mg tablet 4 mg PO DAILY #2 tabs 11/11/23 echinacea 125 mg capsule 125 mg PO DAILY PRN 11/11/23 metoprolol succinate 25 mg capsule 25 mg PO DAILY 11/11/23 sprinkle, ext. release 24 hr oxycodone 5 mg tablet 5 mg PO Q4H PRN pain #20 tabs 11/11/23 pantoprazole 40 mg tablet,delayed 40 mg PO DAILY #30 tabs 11/11/23 release Current Visit Medications: Current Medications Generic Name Dose Route Start Last Admin Trade Name Taye PRN Reason Stop Dose Admin Acetaminophen 1,000 mg 11/15/23 06:00 Acetaminophen 500 Mg Tab PO 12/15/23 05:59 PREOP BRIDGER Celecoxib 400 mg 11/15/23 06:00 Celecoxib 200 Mg Cap PO 12/15/23 05:59 PREOP RBIDGER Droperidol 0.625 mg 11/15/23 07:09 Droperidol 5 Mg/2 Ml Vial IVP 12/15/23 07:08 DIRECTED PRN Nausea Ephedrine Sulfate 0 mg 11/15/23 07:09 Ephedrine 25 Mg/5 Ml Syringe IVP 12/15/23 07:08 DIRECTED PRN Fentanyl 0 mcg 11/15/23 07:09 Fentanyl 100 Mcg/2 Ml Vial IVP 12/15/23 07:08 DIRECTED PRN Gabapentin 300 mg 11/15/23 06:00 Gabapentin 300 Mg Cap PO 12/15/23 05:59 PREOP BRIDGER Hydromorphone HCl 0 mg 11/15/23 07:09 Hydromorphone 2 Mg/Ml Syr IVP 12/15/23 07:08 DIRECTED PRN Ringer's Solution 1,000 mls @ 80 mls/hr 11/15/23 06:00 IV 12/14/23 23:59 INFUSION BRIDGER Cefazolin Sodium/Dextrose 2 gm in 50 mls @ 100 mls/hr 11/15/23 06:00 Ancef Duplex IVPB 12/14/23 23:59 PREOP BRIDGER Tranexamic Acid/Sodium Chloride 1,000 mg in 100 mls @ 600 mls/hr 11/15/23 06:00 IVPB 12/14/23 23:59 PREOP [facility] IV Miscellaneous Supplies 1 each 11/15/23 06:00 Iv Access IV 12/14/23 23:59 DIRECTED BRIDGER Naloxone HCl 0 mg 11/15/23 07:09 Naloxone 0.4 Mg/Ml Vial IVP 12/15/23 07:08 PRN PRN Sodium Chloride 0 ml 11/15/23 06:00 Normal Saline Flush 10 Ml Syr IV 12/14/23 23:59 PRN PRN Sodium Chloride 0 ml 11/15/23 06:00 Normal Saline 10 Ml Vial IJ 12/14/23 23:59 DIRECTED PRN Sterile Water 0 ml 11/15/23 06:00 Water,Injection,Sterile 10 Ml Vial IJ 12/14/23 23:59 DIRECTED PRN PFSH Active Problems Active Problems: Problem Status Onset Code Migraines G43.909 Acquired genu valgum of right knee M21.061 Osteoarthritis of right knee M17.11 Medical History Medical History Dislocation of left ankle joint with reported fracture of the left tibia treated conservatively Varicose veins of legs Ulcerative colitis Denies any issues for the past 20 years; after retiring from [employer] Idiopathic peripheral neuropathy Bilateral Surgical History Surgical History History of total left knee replacement (04/12/23) History of laparoscopic appendectomy DOS 04/10/19 History of hip replacement, total DOS 02/19/20 Tobacco Smoking/Tobacco Use Status: Never Alcohol Alcohol Intake: never Substance Use Substance use: Never Substance use type: does not use Vital Signs and Lab Results Lab Results Blood Type / Crossmatch: No Data to Display Complete Blood Count: White Blood Count 5.23 10^3/uL (4.4-10.8) 11/11/23 11:15 Red Blood Count 3.81 10^6/uL (3.93-5.22) L 11/11/23 11:15 Hemoglobin 13.9 g/dL (11.2-15.7) 11/11/23 11:15 Hematocrit 41.5 % (36.0-46.0) 11/11/23 11:15 Platelet Count 184 10^3/uL (130-400) 11/11/23 11:15 Complete Metabolic Panel: Sodium 145 mmol/L (136-145) 11/11/23 11:15 Potassium 4.3 mmol/L (3.5-5.1) 11/11/23 11:15 Chloride 107 mmol/L (98-107) 11/11/23 11:15 Carbon Dioxide 30.6 mmol/L (21.0-32.0) 11/11/23 11:15 BUN 19 mg/dL (7-18) H 11/11/23 11:15 Creatinine 0.8 mg/dL (0.55-1.02) 11/11/23 11:15 Est GFR (CKD-EPI 2020) 75.84 (mL/min/1.73m2) 11/11/23 11:15 Calcium 10.3 mg/dL (8.5-10.1) H 11/11/23 11:15 Glucose 95 mg/dL (74-106) 11/11/23 11:15 Liver Function Panel: No Data to Display Coagulation Panel: No Data to Display Cardiac Panel: No Data to Display Arterial Blood Gas: No Data to Display Venous Blood Gas: No Data to Display Pancreas Panel: No Data to Display Thyroid Panel: No Data to Display Infectious Disease: No Data to Display Blood Cultures: No Data to Display Toxicology Panel: No Data to Display Imaging and Studies Imaging and Studies Study information below may be from another EMR and interpreted by another provider. Please see original notes in EMR for more complete details. Echocardiogram Summary: Conclusion Normal left ventricular wall thickness and chamber size. Ejection fraction is 55%. Wall motion is normal Normal right ventricular size and systolic function Both atria are moderately dilated Trileaflet aortic valve without stenosis or regurgitation Mildly thickened mitral leaflets with systolic prolapse and moderate to severe regurgitation Normal tricuspid valve with moderate regurgitation. Estimated right ventricular systolic pressure is 27 mmHg Small pericardial effusion 04/01/23 Anesthesia Assessment and Plan Anesthesia History Personal History: No History of Anesthesia Complications Family History: No Family History of Anesthesia Complications Exercise Tolerance Exercise Tolerance: Metabolic Equivalents>4 Pertinent Negatives Pertinent Negatives: No Symptoms of GERD Cardiac & Pulmonary Exam Cardiac Exam: Normal S1/S2 Heart Sounds Pulmonary Exam: Clear Bilateral Breath Sounds Implantable Cardiac Device Does patient have a Pacemaker or an ICD?: No Airway Exam Known Difficult Airway: No Mallampati Class: 1 Mouth Opening: Normal (> 3cm) Thyromental Distance: Greater than 3 cm Neck Range of Motion: Full ROM Neck Circumference: Normal Teeth Condition: Normal Dentition ASA Classification ASA Score: ASA 2 Emergency Case?: No NPO Status NPO Status: NPO Clears >2 hours, Solids >8 hours Anesthesia Plan Resuscitation Status: Full Code Anesthesia Technique: Spinal Anesthesia Airway Planned: Natural Airway Pain Management: Surgeon and patient request nerve block Monitors Used: Standard Monitors
[2023-11-15] MEDS: Lactated Ringers 1,000 ML 80 ML IV (07:36)
[2023-11-15] MEDS: Celecoxib 200 MG CAP 400 MG PO (07:37)
[2023-11-15] MEDS: Gabapentin 300 MG CAP PO ×3 (07:38→19:24)
[2023-11-15] MEDS: Acetaminophen 500 MG TAB 1000 MG PO ×3 (07:38→19:25)
--- NOTE | 2023-11-15 08:28 | W.ANESNERVE ---
Nerve Block Single Injection Procedure Date and Time Date Performed: 11/15/23 Procedure Start: 08:08 Location Where Procedure Performed Procedure Location: Day Surgery Unit Reason Performed: Postoperative Analgesia Requesting Provider: Jones Fragoso Timeout Performed Timeout Performed: Yes Monitoring Used ECG, Blood Pressure, SpO2 and See EMR for corresponding vital signs Sterility Sterility: Hand Hygiene, Surgical Cap, Surgical Mask, Sterile Gloves, Eye Protection and Chlorhexidine Sedation Given During Procedure Sedation Given (Indicate Dose Given): Versed IV Dose:: 2mg IVP Patient Mental Status Patient Mental Status: Sedate with meaningful communication Nerve Block 1st Nerve Block: Laterality: Right Block Type: Adductor Canal Ultrasound Image Saved?: Yes Needle / Catheter Used: 100mm SonoPlex II Local Anesthetic Bolus (Indicate Dose Given): Lidocaine used for local infiltration of skin and Ropivacaine 0.5% Dose:: 0.5%/20cc (100mg) Additives (Indicate Dose Given): Epinephrine to make 1:200,000 (5mcg/ml) Dose:: 100mcg/20cc and Decadron Dose:: 10mg PF Ultrasound: Sterile probe cover and gel used Nerve Stimulator: Not Used Paresthesia: None Procedure Tolerated: No Complications and Patient tolerated well Procedure Outcome: Successful Performed By: Alfonso Marcus
[2023-11-15] MEDS: ceFAZolin 2 GM/50 ML BAG IVPB (09:00)
[2023-11-15] MEDS: TRANEXAMIC ACID/SOD. CHL. 1,000 MG/100 ML BAG 600 MG IVPB (09:07)
[2023-11-15] MEDS: fentaNYL 100 MCG/2 ML VIAL IVP ×2 (11:27→11:37)
--- NOTE | 2023-11-15 11:40 | W.PM.OP ---
Date of service: 11/15/23 Time of Service: 09:00 Operative Note Operative Note DATE OF PROCEDURE: 11/15/23 PRE-OP DIAGNOSIS: Right Knee Osteoarthritis POST-OP DIAGNOSIS: same PROCEDURE: Right Total Knee Replacement with Intraoperative Navigation SURGEON: Jones Fragoso ANALYTICS LEAD: Cesar Luis ANESTHESIA TYPE: Spinal Refer to Anesthesia Record ESTIMATED BLOOD LOSS: 100 PATHOLOGY: none sent TOURNIQUET TIME: 0 COMPLICATIONS: None Patient was transported to: PACU Patient's condition: stable Implants: 1. Depuy Attune Cruciate Retaining Femoral Component, Size 6 2. Depuy Attune Fixed Bearing Tibial Component, Size 5 3. Depuy Attune 6x8 CR/FB Poly 4. Depuy Attune Patellar Component, Size 35 Indications: I have seen Mandy in clinic for symptoms of RIGHT knee arthritis with valgus deformity, confirmed with radiographic findings. Mandy has exhausted nonoperative methods and was having significant limitations in daily function and desired better function and less pain. I discussed the technical details of a knee replacement. I explained the risks of the procedure to include, but not limited to, bleeding, infection, pain, stiffness, fracture, damage to nerves and vessels, damage to muscles and tendons, loosening, need for repeat procedure, blood clot and cardiopulmonary demise. Despite these risks, she elected to proceed. Findings: There was significant signs of arthritis throughout the knee involving all 3 compartments. Procedure Description: Mandy was greeted in the preoperative holding area where the correct side was identified and marked. The consent was reviewed with the patient and signed. The history and physical was updated. All questions were answered. Preoperative mediacations were administered: Acetaminophen 1000mg, Celebrex 400mg, and Gabapentin 300mg. An adductor canal block was then administered by the anesthesia team in the PACU. Mandy was taken back to the operating room. A spinal anesthestic was then administered. The patient was placed into the supine position on the operating room table. Posts were placed for positioning during the procedure. All bony prominences were well padded. Prophylactic antibiotics in the form of Cefazolin were administered. 1g of Tranxemic Acid was given intravenously within 30 minutes of incision. The right leg was then prepped with Chloraprep and draped in a standard fashion with impervious stockinette. A second prep with Chloraprep was performed prior to application of Iodine impregnated skin protection. A timeout to confirm correct identity, side and site, procedure, allergies, anesthesia, and medical concerns was performed. With the knee in some flexion, a midline incision was made overlying the knee. Full thickness skin flaps were raised once the extensor mechanism was encountered. These were raised medially and laterally. Any bleeding was controlled with electrocautery. Once the extensor mechanism was fully exposed, a medial parapatellar arthrotomy was performed in a flexed position. All bleeding from the arthrotomy and the geniculate arteries was coagulated. A medial subperiosteal peel was performed with electrocautery to the midcoronal plane. The fat pad was removed while keeping the patellar tendon protected. The anterior distal femur synovium was removed for later visualization. The ACL and PCL were resected and the anterior horn of the lateral meniscus was transected. The knee was then flexed with the patella everted. Large osteophytes from the tibia were removed. Large osteophytes from the femur were removed. A single starting pin was then placed 1cm anterior to the PCL insertion and the notch in the direction of the femoral head. The OrthoAlign device was applied over the pin. It was oriented to be in line with the epicondylar axis and the trochlear groove. It was then pinned into place. The navigation computer was then turned on and calibrated. The distal femur cut was set at 1 degrees valgus and 3.5 degrees flexion. The distal femur cutting guide then was positioned for a 9mm cut. The distal femur was cut with an oscillating saw while protecting the soft tissues. The tibia was then addressed. The OrthoAlign device was placed over the tibial tubercle and medial tibia and secured into position. Once again, OrthoAlign was calibrated and then set for a 1 degree varus cut and 5 degrees of posterior slope. With this locked into position, the cut thickness stylus was used to assess cut thickness. The lateral side, most involved side, was set for a 4mm cut. This was then held in position and pinned into place with 2 additional pins and a cross pin for stability. The medial and lateral collateral ligaments were protected and the cut was performed. With this completed, it was assessed and noted to be of appropriate dimensions. The guide and OrthoAlign was removed. A spacer block was inserted and the knee was brought into extension to ensure enough space was present. . The Orthoalign gap balancing device was then placed in extension. This was used to ensure that the ligaments were properly balanced with up to 2 to 3 mm laxity laterally compared medially. The extension gap was measured as 18mm. The knee was then brought into 90 degrees of flexion and the ligament electrical continuity inspector was once again placed. Under the same amount of force the flexion gap was measured. The Attune specific jig was placed and the flexion gap was made to match the extension gap. The femur was then sized as a size 5. The 4-in-1 cutting guide was the placed. An eileen wing was used to confirm appropriate position of the anterior cut to avoid notching. This cutting guide was ensured to be flush on the cut surface and then pinned into place with headed pins. While protecting the soft tissues, quad tendon, and collateral ligaments, the anterior and posterior cuts were performed with a saw. The central two pins were removed and the posterior and anterior chamfers were cut next. The notch-cutting guide was placed. This was pinned to lateralize the femoral component as much as possible while keeping it flush on the cut surface. This was then pinned into position. A saw was used to make the notch cut. A rasp smoothed the cut surfaces. The medial and lateral menisci were removed. A trial femoral component was then inserted, impacted down to the cut surfaces, and the lug holes were drilled. A provisional trial tibial component was placed and the knee was brought through range of motion. The polyethylene was trialed until there was good flexion and extension with excellent stability to the medial and lateral collaterals. The patella was tracking without thumbs. A size 8mm polyethylene component provided the best range of motion and stability with less than 2mm gapping with medial and lateral stress and full extension without significant hyperextension. The tibial cut surface was fully exposed. The tibia was then sized as a 5. The tibia had been previously marked during trialing to correspond to the center of the tibial component to help with rotation. The trial was aligned to this cesar, approximately rotated to the medial 1/3rd of the tibial tubercle. The trial was pinned into place. The tibia was prepared with a reamer and a keel punch and lug holes. The knee was then brought into extension and the patella was measured as 25mm. Using the patellar clamp and cut guide, this was resected to a flat surface with at least 13mm of thickness remaining. The size 35 patella fit the best. This was oriented and then clamped into position. The lugs were drilled. The trial components were removed. The final components were opened on the back table. The periosteal and capsular tissues, especially posteriorly, around the knee were then systematically injected with a periarticular cocktail consisting of 246mg of Ropivacaine, 0.5mg of Epinephrine, 0.08mg of Clonidine, and 30mg of Ketorolac, diluted to 100cc. The knee was irrigated and the cut surface of the femur and tibia was suctioned. On the back table, with the implants opened, the cement was mixed. Two batches of medium viscosity cement was prepared with vacuum assistance. Cement was manually impacted into the dried and suctioned surface of the tibia. The tibial component was inserted with the keel as a guide for rotation. Excess cement was removed. Cement was then manually impacted onto the cut and dried surface of the femur. Similarly, the femoral component was inserted until was fully down and excess cement was removed. Then, a small amount was placed on the cut surface of the patella and the patellar button was clamped into position and held. The knee was irrigated with Surgiphor Betadine solution. This was allowed to sit in the knee for 3 minutes and then it was thoroughly irrigated out with saline. After the cement had finally cured, approximately 18min, the clamp was removed from the patella and the knee was taken through range of motion. The patella was tracking with a no-thumbs technique. The trial poly was removed and the real component inserted. The capsule was then reapproximated with a No. 1 Vicryl at multiple locations. The capsule was finally closed with a No. 2 Stratafix, barbed suture. Deep tissues were then reapproximated with 0 Vicryl and 2-0 Vicryl. The skin was closed with a running 3-0 Monocryl in a subcuticular fashion. This was reinforced with skin glue. A Mepilex silver dressing was applied along with a [id number] VICKI wrap. A CryoCuff was applied. Mandy was transferred to the hospital bed without difficulty an suffering no apparent complication. Mandy has a good prognosis. Physical therapy will start today and without restrictions, weight-bearing as tolerated. Eliquis 5mg BID will be used for DVT prophylaxis.
[2023-11-15] MEDS: HYDROmorphone 2 MG/ML SYR IVP (12:02)
--- NOTE | 2023-11-15 13:11 | W.ANESPOSTOP ---
Postoperative Evaluation Date, Time and Location Date Performed: 11/15/23 Time Performed: 13:11 Patient Location: PACU Vital Signs Most Recent Imported Vital Signs: Most Recent Vital Signs Temp Pulse Resp BP Pulse Ox 36 C L 68 14 137/82 97 11/15/23 12:33 11/15/23 12:33 11/15/23 12:33 11/15/23 12:33 11/15/23 12:33 Pain Score Most Recent Pain Score: Most Recent Pain Score Pain Level 4 11/15/23 12:33 Assessment Mental Status: Awake (Alert & Oriented to Patient Baseline) Airway and Respiratory Function: Patent airway with normal (patient baseline) respiratory exam Cardiovascular Function: Hemodynamically Stable Hydration Status: Adequately Hydrated Nausea & Vomiting: No Nausea or Vomiting Pain: Pain is tolerable per patient Peripheral Nerve Block: Regional nerve block not resolved at time of post operative discharge
[2023-11-15] MEDS: Dexamethasone 4 MG TAB PO (13:34)
[2023-11-15] MEDS: Atorvastatin 40 MG TAB PO (13:35)
[2023-11-15] MEDS: Docusate Sodium 100 MG CAP PO ×2 (13:35→19:24)
[2023-11-15] MEDS: Pantoprazole 40 MG TABCR PO (13:36)
[2023-11-15] MEDS: Ferrous Sulfate 325 MG TAB PO (13:36)
--- NOTE | 2023-11-15 13:38 | IN_ITS ---
PT Notes Visit Reasons: OA R Knee Physical Therapy Inpatient Initial Evaluation Date: 11/15/2023 Referring Doctor: RUKHSANA Hernandez PT Orders: PT CONSULT: S/P Ortho Surgery Precautions: Fall. Standard. WBAT on the R LE with AD per Dr. Fragoso. Patient Profile/Admitting Diagnosis: Mandy is a 78-year-old female with degenerative joint disease of the right knee and acquired genu valgum of same joint status post right total knee arthroplasty on postoperative day 0. PMHX: Medical History (Updated 11/11/23 @ 11:02 by RUKHSANA Hernandez) Dislocation of left ankle joint with reported fracture of the left tibia treated conservatively Varicose veins of legs Ulcerative colitis Denies any issues for the past 20 years; after retiring from [employer] Idiopathic peripheral neuropathy Bilateral Surgical History (Updated 11/11/23 @ 11:02 by RUKHSANA Hernandez) History of total left knee replacement (04/12/23) History of laparoscopic appendectomy DOS 04/10/19 History of hip replacement, total DOS 02/19/20 Social History/Home Situation: Lives alone in a private home with 1 step and a ramp to enter. Independent with all aspects of ADLs prior to surgery although has had worsening difficulty to perform mobility ADLs due to arthritic progression. Will have support from friends as needed as she recovers. Equipment Owned/DME: [facility] Subjective: Reported 2-3/10 pain on the right knee at rest and with movement. Mildly lightheaded upon sitting up at edge of bed but resolved with ambulation performance. Denied headache, chest pain, and lightheadedness throughout session. Objective: General Observation: VICKI wrap to R LE. Cryocuff to R knee. TEDS to left leg and foot. Lips pale but vital signs WNL. Mental Status: Alert and oriented as to person, place, time, and purpose. Able to pay attention, focus, and respond appropriately. Pain: As above Vital Signs: BP 123/71 mmHg, SaO2 79% on RA, HR 77 bpm upon sitting up at EOB ROM: Right Lower Extremity: Hip flexion WFL. Hip abduction WFL. Knee flexion 0-100 degrees. Ankle dorsiflexion WFL. Ankle plantarflexion WFL. Left Lower Extremity: Hip flexion WFL. Hip abduction WFL. Knee flexion WFL. Ankle dorsiflexion WFL. Ankle plantarflexion WFL. Strength: Right Lower Extremity: Hip flexors 4/5. Hip abductors 4/5. Knee flexors 3-/5. Knee extensors 4-/5. Ankle dorsiflexors 4/5. Ankle plantarflexors 4/5. Left Lower Extremity: Hip flexors 4/5. Hip abductors 4/5. Knee flexors 4/5. Knee extensors 4/5. Ankle dorsiflexors 4/5. Ankle plantarflexors 5/5. Bed Mobility/Transfers: Minimal cueing provided for use of B hands as needed for support, movement sequence, AD management, and posture to reduce fall risk and minimize pain report Supine to sit with standby assist Sit to stand contact-guard assist Stand to sit contact-guard assist Bed to b toilet seat with contact-guard assist Bedside commode to bed side chair contact-guard assist Gait: Facilitated safe and correct performance of level surface ambulation covering a distance of 80 feet using front-wheeled walker with reciprocal step-through heel-toe gait pattern. Minimal verbal cueing provided for safe technique, AD management, and posture to reduce fall risk and minimize pain report. Contact- guard assist provided with wheelchair follow. Balance: Static Sitting: Normal Dynamic Sitting: Normal Static Standing: Fair Dynamic Standing: Fair Special Tests: Mobility Limitations Standardized Measure [facility]-PAC 6 clicks Basic Mobility Inpatient Short Form: Raw Score: 16 CMS Score: 54% deficit Informed Consent/Education: Patient was instructed in purpose of PT consult and plan of care. Agreeable to proceed with established PT POC to achieve personal goals. Trained patient with correct performance of exercises below to maximize motor control, joint flexibility, soft tissue extensibility of the R knee musculature: Access Code: [email or web address] URL: [email or web address]/ Date: 11/15/2023 Prepared by: Sophy Hernandez Exercises - Supine Quad Set - 1 x daily - 7 x weekly - 1 sets - 10 reps - 5 hold - Supine Heel Slide - 1 x daily - 7 x weekly - 1 sets - 10 reps - 5 hold - Supine Ankle Pumps - 1 x daily - 7 x weekly - 1 sets - 10 reps - 5 hold - Small Range Straight Leg Raise - 1 x daily - 7 x weekly - 1 sets - 10 reps - 5 hold - Seated September - 1 x daily - 7 x weekly - 1 sets - 10 reps - 5 hold Assessment: Patient requires use of a front wheeled walker for mobility ADL performance maximize independence and reduce fall risk. Patient presents with clinical signs and symptoms consistent with current/admitting diagnoses that have resulted to mobility limitations, gait instability, generalized weakness, and overall ADL decline as demonstrated by the following impairment level findings: 1. Decreased strength to R knee major muscle groups 2. Impaired sitting/standing balance 3. Impaired activity tolerance 4. Limitation of joint range of motion in R knee Impairments are contributing to the following functional limitations: 1. Decline in bed mobility skills 2. Decline in transfer skills 3. Difficulty with ambulation without assistive device and physical assistance 4. Increased completion time for mobility ADL performance 5. Increased risk for falls 6. Difficulty with managing steps alone safely Patient is assessed as a [id number] moderate complexity based on the following: History: 78-year-old female with past medical history as indicated above Examination: Demonstrable impairment in strength, balance, and mobility level with underlying impairments and functional limitations as exhibited above as well as deficit score of 54% utilizing the [facility] Mobility Inpatient Short Form Presentation: Evolving Decision Makin moderate complexity Goals: Goals X1 week 1. Supine-Sit independent 2. Sit-Supine independent 3. Sit-Stand independent 4. Stand-Sit independent with FWW 5. Bed-Chair independent with FWW 6. Chair-Bed independent with FWW 7. Independent gait on level surface with use of FWW for at least 300 feet wit hout report of pain nor dyspnea 8. Independent stair negotiation while holding onto B rails for at least 2 steps without report of pain nor dyspnea 9. Independent with home exercise program 10. Good static and dynamic standing balance/tolerance Plan of Care/Treatment Plan: 1-2x/day, 7 days/week x 1 week. Plan of care has been reviewed with the MENDING CARRIER providing the service under Physical Therapy direction. Initiate Physical Therapy intervention for pain management as needed, strengthening, bed mobility, transfers, gait, stairs, balance training, and use of assistive device. DISCHARGE RECOMMENDATIONS: [] Home with no services [] [] Home with services [specify] [X] Home with outpatient PT. home when medically cleared by orthopedic surgeon. Recommend outpatient PT services in order to optimize functional mobility outcomes and facilitate return to independent community ambulation without an assistive device. [] SNF for continued rehabilitation [] [] Mobile Equipment Mechanic Care [] [] SNF versus LTC based on ability to participate and progress [] TREATMENT CODE/TIME: 99071 x 20 minutes for 1 unit, 9753 0 x 25 minutes for 2 units (13:38-14:23). Thank you for the opportunity to participate in the care of this patient. Sophy Hernandez PT, DPT, CLT [facility] [place], [place]
[2023-11-15] MEDS: Oxybutynin 5 MG TAB PO ×2 (14:27→19:25)
[2023-11-15] MEDS: ceFAZolin 1 GM/50 ML BAG IVPB ×2 (14:28→22:24)
[2023-11-15] MEDS: Normal Saline Flush 10 ML SYR ×2 (14:29→22:25)
[2023-11-15] MEDS: Apixaban 5 MG TAB PO (19:24)
[2023-11-15] MEDS: Metoprolol 12.5 MG TAB PO (19:24)
[2023-11-15] MEDS: Celecoxib 200 MG CAP PO (19:25)
[2023-11-16 03:13] VITALS: BP 108/65; PULSE 74; RESP 16; TEMP 35.3; O2SAT 92
[2023-11-16] MEDS: ceFAZolin 1 GM/50 ML BAG IVPB (05:55)
[2023-11-16] MEDS: Normal Saline Flush 10 ML SYR IV (05:56)
--- NOTE | 2023-11-16 06:16 | W.PM.DS.N ---
Date of service: 11/16/23 Time of Service: 07:24 Discharge Plan Disposition Patient Disposition: Home Condition: Good Discharge Details Reason For Visit: OA R Knee Admit Date/Time: 11/15/23 07:25 Admit Provider: Jones Fragoso Attending Provider: Jones Fragoso [facility] Hospital Course: Patient was admitted to the medical/surgical floor following the procedure. The surgery was tolerated well without any notable medical, surgical, or anesthetic complications. Mobilization began postoperatively. [He][She] was voiding spontaneously. Vitals were stable. Physical therapy worked with the patient and was cleared for discharge home. No acute medical issues. Pain was controlled on oral regimen. Home Meds and New Rx's Prescriptions: New acetaminophen 500 mg tablet 1,000 mg PO TID Qty: 90 3RF celecoxib 200 mg capsule 200 mg PO BID Qty: 60 0RF pantoprazole 40 mg tablet,delayed release (DR/EC) 40 mg PO DAILY Qty: 30 0RF dexamethasone 4 mg tablet 4 mg PO DAILY Qty: 2 0RF oxycodone 5 mg tablet 5 mg PO Q4H MDD 6 tabs PRN (Reason: pain) Qty: 20 0RF Continued oxybutynin chloride 5 mg tablet 5 mg PO TID Eliquis 5 mg tablet 5 mg PO BID metoprolol succinate 25 mg capsule,sprinkle,ER 24hr 25 mg PO DAILY atorvastatin 40 mg tablet 40 mg PO DAILY echinacea 125 mg capsule 125 mg PO DAILY PRN Rx Instructions: administer with meals Ca carb-D3-mag nq-lqb-qvvy-Zn 600 mg-20 mcg- 40 mg-0.25 mg tablet,chewable 1 tab PO DAILY garlic 1,000 mg capsule 1,000 mg PO DAILY vitamin E (dl, acetate) 180 mg (400 unit) capsule 180 mg PO DAILY vitamin B complex [B Complex-Vitamin B12] Tablet 1 tab PO DAILY ferrous sulfate 325 mg (65 mg iron) tablet 325 mg PO DAILY lysine [L-Lysine] 500 mg tablet 500 mg PO DAILY turmeric root extract 500 mg tablet 500 mg PO DAILY ascorbate calcium (vitamin C) 500 mg tablet 500 mg PO DAILY cholecalciferol (vitamin D3) 125 mcg (5,000 unit) capsule 125 mcg PO DAILY gabapentin 100 mg capsule 300 mg PO TID docusate sodium [Colace] 100 mg capsule 100 mg PO BID Qty: 30 0RF Discontinued acetaminophen 500 mg tablet 1,000 mg PO Q8H PRN Qty: 90 0RF Rx Instructions: Take two tablets up to every 8 hours as needed for pain Discharge Instructions Additional Instructions: Total Knee Discharge Instructions Activity: The most important activity is to walk and to work on gentle motion (both flexion and extension). You should try to take short walks a few times a day. It is important that when resting you work on keeping the knee straight. Avoid putting a pillow behind the knee as this will encourage flexion. Work on range of motion exercises as provided by Physical Therapy. - Start outpatient physical therapy within 2 weeks. - You should wear the PAKO hose on both legs for 2 weeks. You may remove these at night. You may also use any compression sock in place of the PAKO hose. - Utilize [employer] to review exercises, see videos on exercises and obtain basic information pertaining to your surgery and your recovery. Dressing: Remove the Familia wrap by 2 days after your surgery and put on the PAKO stocking given to you from the hospital. Keep the surgical dressing (underneath the FAMILIA wrap) in place for at least one week. After the first week it may be removed and replaced with light gauze and tape or nothing. The wound and dressing may get wet after 3 days but avoid soaking the dressing or otherwise it will need to be changed. Many people prefer covering the dressing with cling wrap (saran wrap) to minimize it from getting soaked. If it gets wet, just pat dry. If it starts to peel off then it will need to be changed. Medications: - You should take Tylenol and anti-inflammatory Celebrex as your primary pain control medications. If the Celebrex is too expensive or not covered, please call the office for another alternative (Advil/Ibuprofen or Naproxen/Aleve) - You have been prescribed a stronger pain medication Oxycodone for breakthrough pain, take as needed as prescribed. - You have also been prescribed a stomach acid reduction agent Pantoprozole to help reduce stomach acid and reflux. - You will continue your Gabapentin to take at night for restlessness and nerve pain. - You will be taking your regular dose of Eliquis for DVT prevention unless instructed otherwise. - You have also been prescribed Decadron to take to control post-operative nausea and pain. You will start this tomorrow. - If you have constipation you should take Colace or Miralax (both [id number]). It takes most people 3-4 days to have a bowel movement. Follow-up: 2 weeks If you have any acute concerns or questions, please do not hesitate to contact the office at [phone]. You may contact Dr. Fragoso with any questions after hours through the hospital at [phone] or on his cell phone at [phone]. Referrals: Jones Fragoso MD [ [facility] STAFF PHYSICIAN] - Activity:: Activity as Tolerated Equipment/Supplies:: Walker Diet:: As Tolerated Discharge Orders Discharge Orders: Discharge Order (Routine); Ordered 11/16/23 Ordered By: Jones Fragoso DS: Summary Time Spent with Patient providing and/or coordinating discharge services: Less than 30 minutes Status at Discharge Functional status at discharge: uses cane/walker Overall status at discharge: patient is progressing back to baseline Mental Status: mental status grossly normal Speech and Movement: speech and movement normal Mood: congruent mood Affect: normal affect Quality:SDOH Health Related Social Needs: No Data to Display Exam Narrative Exam Narrative: Resting in the bed. No acute distress. Alert and orient x 3. Evaluation of the right lower extremity shows a clean dry and intact dressing. She is able to straight leg raise. Sensation intact light touch over the deep and superficial peroneal nerve and tibial nerve. Intact ankle dorsiflexion, plantarflexion, great toe extension and flexion. Psych Mental Status: mental status grossly normal Speech and Movement: speech and movement normal Mood: congruent mood Affect: normal affect DS: Data Vitals/I&O Vitals and I&O: Vital Signs Temperature 35.3 C L 11/16/23 03:13 Temperature Source Tympanic 11/16/23 03:13 Pulse 74 11/16/23 03:13 Pulse Rhythm Irregular 11/16/23 06:00 Respiratory Rate 16 11/16/23 03:13 Respiratory Effort Normal, Non-Labored 11/16/23 06:00 Respiratory Depth Normal 11/16/23 06:00 Respiratory Pattern Normal 11/16/23 06:00 Blood Pressure 108/65 11/16/23 03:13 Blood Pressure Mean 75 11/15/23 08:05 Pulse Oximetry 92 11/16/23 03:13 Oxygen Delivery Method Room Air 11/16/23 03:13 Oxygen Flow Rate 0 11/16/23 03:13 Pain Level 1 11/15/23 19:36 Comment Pt resting with eyes closed, shows no signs of distress. 11/15/23 08:30 Intake & Output 11/15/23 11/15/23 11/16/23 11:59 23:59 11:59 Intake Total 1000 / 1490 490 / 1490 Output Total 100 / 100 500 / 500 Balance 900 / 1390 490 / 1390 -500 / -500 Weight 79.861 kg 79.86 kg Intake: IV 1000 / 1250 250 / 1250 Oral 240 / 240 Output: Urine 500 / 500 Estimated Blood Loss 100 / 100 Other: Urine Color Yellow Urine Appearance Clear Clear Urine Odor None Comment toilet insert via [email or web address] Emesis Description None None Voiding Methods Toilet PFSH All Active Problems Migraines (Chronic) Acquired genu valgum of right knee (Acute) Osteoarthritis of right knee (Acute) Medical History Dislocation of left ankle joint with reported fracture of the left tibia treated conservatively Varicose veins of legs Ulcerative colitis Denies any issues for the past 20 years; 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 Idiopathic peripheral neuropathy Bilateral Surgical History 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
[2023-11-16] MEDS: Acetaminophen 500 MG TAB 1000 MG PO (07:57)
[2023-11-16] MEDS: Gabapentin 300 MG CAP PO (07:57)
[2023-11-16] MEDS: Dexamethasone 4 MG TAB PO (07:59)
[2023-11-16] MEDS: Ferrous Sulfate 325 MG TAB PO (08:01)
[2023-11-16] MEDS: Atorvastatin 40 MG TAB PO (08:01)
[2023-11-16] MEDS: Pantoprazole 40 MG TABCR PO (08:01)
[2023-11-16] MEDS: Docusate Sodium 100 MG CAP PO (08:02)
[2023-11-16] MEDS: Apixaban 5 MG TAB PO (08:02)
[2023-11-16] MEDS: Oxybutynin 5 MG TAB PO (08:02)
[2023-11-16] MEDS: Celecoxib 200 MG CAP PO (08:03)
[2023-11-16 08:26] VITALS: BP 96/63; PULSE 68; RESP 15; TEMP 36; O2SAT 95
--- NOTE | 2023-11-16 09:04 | CMDISCH_ITS ---
Care Management Discharge Plan Reason for Hospitalization: OA R Knee Discharge Plan: Mandy will discharge home via private vehicle. She will follow up with her PCP and discharge plan of care. She will follow up as well with . She will follow up with outpatient PT. Patient/Family Education Needs: Review discharge instructions and plan of care as prescribed. Discussion of Ask Me Three self care needs upon discharge. Services Needed at Discharge: Outpatient Therapy and Physical Therapy SDOH Health Related Social Needs: No Data to Display Disposition Transport via of: Private [facility]
--- NOTE | 2023-11-16 09:58 | PT.INTREAT ---
PT Notes Visit Reasons: OA R Knee Physical Therapy Inpatient Treatment Note Date: 11/16/2023 Precautions: Fall. Standard. WBAT on the R LE with AD per Dr. Fragoso. Subjective: Reported 4-5/10 pain on the right knee with weight-bearing. Denied headache, chest pain, and lightheadedness throughout session. Objective: General Observation: VICKI wrap to R LE. Cryocuff to R knee. TEDS to left leg and foot. Mental Status: Alert and oriented as to person, place, time, and purpose. Able to pay attention, focus, and respond appropriately. Pain: As above Bed Mobility/Transfers: Minimal cueing provided for use of B hands as needed for support, movement sequence, AD management, and posture to reduce fall risk and minimize pain report Supine to sit with supervision Sit to stand supervision Stand to sit supervision Bed to b toilet seat with supervision Gait: Facilitated safe and correct performance of level surface ambulation covering a distance of 300 feet using front-wheeled walker with reciprocal step-through heel-toe gait pattern. Minimal verbal cueing provided for safe technique, AD management, and posture to reduce fall risk and minimize pain report. Supervision only with no wheelchair follow needed. Balance: Static Sitting: Normal Dynamic Sitting: Normal Static Standing: Fair Dynamic Standing: Fair THERA ACT: reviewed safe and correct performance of exercises below to maximize motor control, joint flexibility, soft tissue extensibility of the R knee musculature: Access Code: [email or web address] URL: [email or web address] Date: 11/16/2023 Prepared by: Sophy Hernandez Exercises - Supine Quad Set - 1 x daily - 7 x weekly - 1 sets - 10 reps - 5 hold - Supine Heel Slide - 1 x daily - 7 x weekly - 1 sets - 10 reps - 5 hold - Supine Ankle Pumps - 1 x daily - 7 x weekly - 1 sets - 10 reps - 5 hold - Small Range Straight Leg Raise - 1 x daily - 7 x weekly - 1 sets - 10 reps - 5 hold - Seated March - 1 x daily - 7 x weekly - 1 sets - 10 reps - 5 hold Assessment: Patient requires use of a front wheeled walker for mobility ADL performance maximize independence and reduce fall risk. Given pain medication by Nurse Rosado early this morning around 7:30 AM. Now only supervision for all mobility ADL performance using the FWW. DISCHARGE RECOMMENDATIONS: [] Home with no services [] [] Home with services [specify] [X] Home with outpatient PT. home when medically cleared by orthopedic surgeon. Recommend outpatient PT services in order to optimize functional mobility outcomes and facilitate return to independent community ambulation without an assistive device. [] SNF for continued rehabilitation [] [] [facility] [] [] SNF versus LTC based on ability to participate and progress [] TREATMENT CODE/TIME: 46796 x 34 minutes for 2 units (9:58-10:23).
== END 2023-11-16 11:30 | disposition home or self-care (01) ==
LOC: MS 12:09
PROVIDERS: Admitting Provider Student in an Organized Health Care Education/Training Program; PCP Family Medicine; Visit Provider Student in an Organized Health Care Education/Training Program
PROC: (CPT 27447; principal; 2023-11-15 09:15)
DX: M17.11 Unilateral primary osteoarthritis, right knee (principal); M21.061 Valgus deformity, not elsewhere classified, right knee; G62.9 Polyneuropathy, unspecified; G43.909 Migraine, unspecified, not intractable, without status migrainosus; Z96.652 Presence of left artificial knee joint; I35.0 Nonrheumatic aortic (valve) stenosis; I48.91 Unspecified atrial fibrillation; Z79.01 Long term (current) use of anticoagulants
CPT/HCPCS: 27447; 20985; C1776; 97162; 97530; J0171; J0690; J1100; J1170; J2001; J2250; J2371; J2401; J2405; J2704; J3010; J3490; J8540

== ENCOUNTER 2023-11-28 15:20 | Outpatient (CLI) | payer MEDICARE, SELFPAY ==
--- NOTE | 2023-11-28 13:00 | DI.RAD_ITS ---
Exam(s) XR STANDING ALIGNMENT XR KNEE RT 1V EXAM: XR STANDING ALIGNMENT and XR knee RT 1 V CLINICAL HISTORY: 1ST POST OP R TKA. TECHNIQUE: 2D digital imaging was performed. Six images were obtained. COMPARISON: CR XR STANDING ALIGNMENT from 04/25/2023 CR XR KNEE LT 1V from 04/25/2023 FINDINGS: BONES: There is again seen a left total hip replacement which appears in good position. Degenerative changes are seen in the right hip. Calcifications are seen in the pelvis likely reflecting calcifie d uterine fibroids. The patient has bilateral stable total knee replacement. No suspicious lucencie s are seen around the visualized portions of the orthopedic hardware. The ankles are well maintained .There is no significant leg length discrepancy. SOFT TISSUE: Normal. IMPRESSION: Stable right total knee replacement. DATA REPOSITORY: RADIATION DOSE DELIVERED:
== END 2023-11-28 15:21 | disposition home or self-care (01) ==
LOC: DIORS 15:20
PROVIDERS: PCP Family Medicine; Visit Provider Physician Assistant
DX: Z96.651 Presence of right artificial knee joint (principal); Z47.1 Aftercare following joint replacement surgery
CPT/HCPCS: 73560; 77073

== ENCOUNTER → 2023-12-29 13:13 | Outpatient (BNVA) | payer MEDICARE, SELFPAY | PROVIDERS: PCP Family Medicine; Referring Provider Family Medicine | DX: Z47.1 Aftercare following joint replacement surgery (principal); Z96.651 Presence of right artificial knee joint ==

== ENCOUNTER → 2024-02-06 13:13 | Outpatient (BNVA) | payer MEDICARE, SELFPAY | PROVIDERS: PCP Family Medicine; Referring Provider Family Medicine; Visit Provider Student in an Organized Health Care Education/Training Program | DX: Z47.1 Aftercare following joint replacement surgery (principal); Z96.651 Presence of right artificial knee joint ==

== ENCOUNTER 2024-11-19 14:42 | Outpatient (CLI) | payer MEDICARE, SELFPAY ==
--- NOTE | 2024-11-19 13:26 | DI.RAD_ITS ---
Exam(s) XR KNEE RT 2V AP,LAT EXAM: XR KNEE RT 2V AP,LAT CLINICAL HISTORY: ANNUAL F/U R TKA. TECHNIQUE: 2D digital imaging was performed. Two images were obtained. AP and lateral views were ob tained. COMPARISON: CR XR KNEE RT 1V from 11/28/2023 FINDINGS: BONES: There are stable post operative changes of a right total knee arthroplasty present. No fractu re or dislocation. JOINTS: The orthopedic hardware is in good position. No evidence of hardware loosening. SOFT TISSUE: Normal. IMPRESSION: Stable right total knee arthroplasty. DATA REPOSITORY: RADIATION DOSE DELIVERED:
== END 2024-11-19 14:43 | disposition home or self-care (01) ==
LOC: DIORS 14:42
PROVIDERS: PCP Family Medicine; Referring Provider Family Medicine; Visit Provider Physician Assistant
DX: Z96.651 Presence of right artificial knee joint (principal); Z47.1 Aftercare following joint replacement surgery
CPT/HCPCS: 99213; 73560

== ENCOUNTER 2025-03-25 08:29 | Outpatient (CLI) | payer MEDICARE, SELFPAY ==
--- NOTE | 2025-03-25 08:21 | DI.RAD_ITS ---
Exam(s) XR PELVIS AP EXAM: XR PELVIS AP CLINICAL HISTORY: pain/pre surgical. TECHNIQUE: 2D digital imaging was performed.Two images were obtained. COMPARISON: CR XR STANDING ALIGNMENT from 11/28/2023 CR XR HIP MIN 2V RT from 02/04/2025 FINDINGS: BONES: No acute fracture is present. No bony destructive lesion is seen. JOINTS: There is moderately severe narrowing of the right hip joint space. Small osteophyte is seen at the femoral head. Note is again made of a left total hip arthroplasty. The visualized portions of the orthopedic hardware are unremarkable. SOFT TISSUE: Calcification is again seen in the pelvis consistent with the calcified uterine fibroid. IMPRESSION: Osteoarthritis of the right hip. DATA REPOSITORY: RADIATION DOSE DELIVERED:
== END 2025-03-25 08:30 | disposition home or self-care (01) ==
LOC: DIORS 08:30
PROVIDERS: PCP Family Medicine; Referring Provider Family Medicine; Visit Provider Student in an Organized Health Care Education/Training Program
DX: M16.11 Unilateral primary osteoarthritis, right hip (principal)
CPT/HCPCS: 99214; 72170

== ENCOUNTER 2025-05-16 13:35 | Outpatient (REF) | payer MEDICARE, SELFPAY ==
[2025-05-16 15:06] LABS: HCT 38.8 % (36.0-46.0); HGB 13.2 g/dL (11.2-15.7); MCH 36.2 pg (27.0-33.0); MCHC 34.0 % (32.0-36.0); MCV 106 fL (80-95); MPV 12.2 fL (8.0-11.0); Platelet Count 159 10^3/uL (130-400); RBC 3.65 10^6/uL (3.93-5.22); RDW 12.3 % (11.7-14.6); RDW-SD 48.8 fL; WBC 4.91 10^3/uL (4.4-10.8)
[2025-05-16 15:17] LABS: Anion Gap 7.1 mmol/L (3-11); BUN 18 mg/dL (7-18); CO2 28.9 mmol/L (21.0-32.0); Calcium 10.2 mg/dL (8.5-10.1); Chloride 108 mmol/L (98-107); Estimated GFR 75.37 (mL/min/1.73m2); Glucose 94 mg/dL (74-106); Potassium 4.1 mmol/L (3.5-5.1); Sodium 144 mmol/L (136-145)
== END 2025-05-16 13:36 | disposition home or self-care (01) ==
LOC: LBN 13:35
PROVIDERS: PCP Family Medicine; Visit Provider Student in an Organized Health Care Education/Training Program
DX: Z01.818 Encounter for other preprocedural examination (principal); M16.11 Unilateral primary osteoarthritis, right hip
CPT/HCPCS: 80048; 85027

== ENCOUNTER 2025-05-21 08:26 | Day surgery (SDC) | payer MEDICARE, SELFPAY ==
[2025-05-21] VITALS (24 sets, daily range): BP systolic 80–140; BP diastolic 44–89; PULSE 50–89; RESP 0–23; TEMP 36.1–36.4; O2SAT 93–97; BMI 26.9
--- NOTE | 2025-05-21 07:11 | PDOC.DSDIS_ITS ---
Date of service: 05/21/25 Discharge Plan Disposition Patient Disposition: Home Condition: Good Discharge Details Reason For Visit: Right hip DJD Attending Provider: Jones Fragoso Primary Care Provider: Geoff Beck [place] Meds and New Rx's Prescriptions: New acetaminophen 500 mg tablet 1,000 mg PO Q8H PRN Qty: 90 0RF Rx Instructions: Take two tablets up to every 8 hours as needed for pain celecoxib [Celebrex] 200 mg capsule 200 mg PO BID PRNQty: 60 0RF Rx Instructions: Take one tablet twice daily for pain and inflammation docusate sodium [Colace] 100 mg capsule 100 mg PO BID Qty: 28 0RF pantoprazole 40 mg tablet,delayed release (DR/EC) 40 mg PO DAILY Qty: 14 0RF Rx Instructions: Take one tablet once daily dexamethasone 4 mg tablet 4 mg PO DAILY Qty: 2 0RF Rx Instructions: Take one tablet once daily for two days oxycodone 5 mg tablet 5 mg PO Q6H PRNQty: 12 0RF Rx Instructions: Take one tablet up to every 6 hours as needed for severe postoperative pain Continued Eliquis 5 mg tablet 5 mg PO BID metoprolol succinate 25 mg capsule,sprinkle,ER 24hr 25 mg PO DAILY atorvastatin 40 mg tablet 40 mg PO DAILY echinacea 125 mg capsule 125 mg PO DAILY PRN Rx Instructions: administer with meals solifenacin 10 mg tablet 10 mg PO DAILY Ca carb-D3-mag jp-umz-ufhi-Zn 600 mg-20 mcg- 40 mg-0.25 mg tablet,chewable 1 tab PO DAILY garlic 1,000 mg capsule 1,000 mg PO DAILY vitamin E (dl, acetate) 180 mg (400 unit) capsule 180 mg PO DAILY PRN vitamin B complex [B Complex-Vitamin B12] Tablet 1 tab PO DAILY ferrous sulfate 325 mg (65 mg iron) tablet 325 mg PO DAILY lysine [L-Lysine] 500 mg tablet 500 mg PO DAILY turmeric root extract 500 mg tablet 500 mg PO DAILY ascorbate calcium (vitamin C) 500 mg tablet 500 mg PO DAILY cholecalciferol (vitamin D3) 125 mcg (5,000 unit) capsule 125 mcg PO DAILY gabapentin 100 mg capsule 300 mg PO TID Rx Instructions: 2 CPS AT HS Discontinued docusate sodium [Colace] 100 mg capsule 100 mg PO BID Qty: 30 0RF acetaminophen 500 mg tablet 1,000 mg PO TID Qty: 90 3RF pantoprazole 40 mg tablet,delayed release (DR/EC) 40 mg PO DAILY Qty: 30 0RF Discharge Instructions Additional Instructions: Total Hip Discharge Instructions Activity: The most important activity is to walk. You should try to take short walks a few times a day. You have no restrictions on movement or positioning, but do not try to force what you do. You will find some stiffness and weakness with hip flexion (lifting your knee). Do not try to strengthen this too early, continue to practice walking and stairs and this will come. - Outpatient physical therapy can be helpful to help return you to a normal gait and improve your flexibility and strength. This can start around 2 weeks. For some patients, it?s not necessary. Usually this is determined at the time of discharge or at the first post-operative visit. - You should wear the PAKO hose on both legs for 2 weeks. Dressing: Keep the surgical dressing in place for at least one week. After the first week it may be removed and replace with light gauze and tape or nothing. It may get wet after 3 days but avoid soaking the dressing. If it gets wet, just lightly pat dry. It is important to always keep some gauze between skin folds, especially when you are sitting. Spend some time with the wound exposed when you are lying flat as the incision does wrinkle onto itself. Medications: - You should take Tylenol and an anti-inflammatory Celebrex as your primary pain control medications. If the Celebrex is too expensive or not covered, please call the office for another alternative (Advil/Ibuprofen or Naproxen/Aleve). - You have been prescribed a stronger pain medication Oxycodone for breakthrough pain, take as needed as prescribed. - You have also been prescribed a stomach acid reduction agent Pantoprozole to help reduce stomach acid and reflux. - You have also been prescribed Decadron to help with post-operative nausea and pain. You will take this for two days starting tomorrow. - You will be resume taking your Apixaban tomorrow on 05/22/25 for DVT prevention. - If you have constipation you should take Colace (which has been prescribed) or Miralax (which is available [id number]). It takes most people 3-4 days to have a bowel movement. Follow-up: 2 weeks If you have any acute concerns or questions, please do not hesitate to contact the office at [phone]. You may contact Dr. Fragoso with any questions after hours through the hospital at [phone] or on his cell phone at [phone]. Referrals: Jones Fragoso MD [ [facility] STAFF PHYSICIAN, Orthopaedic Surgical] Equipment/Supplies: Walker Activity:: Elevate Remove Dressings/Wound Care:: Do Not Remove Shower/Bathe:: Cover Diet:: As Tolerated Discharge Orders Discharge Orders: Discharge Order (Routine); Ordered 05/21/25 Ordered By: Jessica Prasad
--- NOTE | 2025-05-21 08:15 | W.ANESPRE ---
General Info Date of Service Date Performed: 05/21/25 Height: 5 ft 10 in Weight: 85.275 kg Body Mass Index (BMI): 26.9 Surgical Procedure: Operation Date: 05/21/25 11:35 Proposed Procedure Side Surgeon p Hip Total Hip Anterior, Actis Right Jones Fragoso MD Meds Allergies and Home Medications Allergies Allergy/AdvReac Type Severity Reaction Status Date / Time aspirin AdvReac GI BLEEDS Verified 05/21/25 08:51 Home Medication ?Medication ?Instructions ?Recorded ascorbate calcium (vitamin C) 500 500 mg PO DAILY 11/10/22 mg tablet cholecalciferol (vitamin D3) 125 125 mcg PO DAILY 11/10/22 mcg (5,000 unit) capsule ferrous sulfate 325 mg (65 mg 325 mg PO DAILY 11/10/22 iron) tablet lysine 500 mg tablet (L-Lysine) 500 mg PO DAILY 11/10/22 turmeric root extract 500 mg tablet 500 mg PO DAILY 11/10/22 vitamin B complex (B 1 tab PO DAILY 11/10/22 Complex-Vitamin B12 tablet) calcium 600 mg-D3 20 mcg-magnesium 1 tab PO DAILY 03/31/23 40 [id number] chew tablet garlic 1,000 mg capsule 1,000 mg PO DAILY 03/31/23 vitamin E (dl, acetate) 180 mg 180 mg PO DAILY PRN 03/31/23 (400 unit) capsule apixaban 5 mg tablet (Eliquis) 5 mg PO BID 05/23/23 atorvastatin 40 mg tablet 40 mg PO DAILY 11/11/23 echinacea 125 mg capsule 125 mg PO DAILY PRN 11/11/23 metoprolol succinate 25 mg capsule 25 mg PO DAILY 11/11/23 sprinkle, ext. release 24 hr gabapentin 100 mg capsule 300 mg PO TID 12/29/23 solifenacin 10 mg tablet 10 mg PO DAILY 11/19/24 acetaminophen 500 mg tablet 1,000 mg (2 x 500 mg) PO Q8H PRN 05/21/25 pain #90 tabs celecoxib 200 mg capsule (Celebrex) 200 mg PO BID PRN #60 caps 05/21/25 dexamethasone 4 mg tablet 4 mg PO DAILY #2 tabs 05/21/25 diphenhydramine 25 1 tab PO QHS PRN 05/21/25 mg-acetaminophen 500 mg tablet (Acetaminophen PM Extra Strength) docusate sodium 100 mg capsule 100 mg PO BID #28 caps 05/21/25 (Colace) oxycodone 5 mg tablet 5 mg PO Q6H PRN #12 tabs 05/21/25 pantoprazole 40 mg tablet,delayed 40 mg PO DAILY #14 tabs 05/21/25 release Current Visit Medications: Current Medications Generic Name Dose Route Start Last Admin Trade Name Freq PRN Reason Stop Dose Admin Acetaminophen 1,000 mg 05/21/25 06:00 Acetaminophen 500 Mg Tab PO 05/21/25 23:59 PREOP BRIDGER Celecoxib 400 mg 05/21/25 06:00 Celecoxib 200 Mg Cap PO 05/21/25 23:59 PREOP BRIDGER Hydromorphone HCl 0.5 mg 05/21/25 07:10 Hydromorphone 2 Mg/Ml Syr IVP 06/20/25 07:09 Q2H PRN PRN Ringer's Solution 1,000 mls @ 80 mls/hr 05/21/25 06:00 IV 05/21/25 23:59 INFUSION BRIDGER Cefazolin Sodium/Dextrose 2 gm in 50 mls @ 100 mls/hr 05/21/25 06:00 Ancef Duplex IVPB 05/21/25 23:59 PREOP BRIDGER Tranexamic Acid/Sodium Chloride 1,000 mg in 100 mls @ 600 mls/hr 05/21/25 06:00 IVPB 05/21/25 23:59 PREOP BRIDGER Cefazolin Sodium/Dextrose 1 gm in 50 mls @ 100 mls/hr 05/21/25 08:00 Ancef Duplex IVPB 05/22/25 00:29 Q8H BRIDGER IV Miscellaneous Supplies 1 each 05/21/25 06:00 Iv Access IV 05/21/25 23:59 DIRECTED BRIDGER Oxycodone HCl 0 mg 05/21/25 07:10 Oxycodone 5 Mg Tab PO 06/20/25 07:09 Q3H PRN PRN Pain Sodium Chloride 0 ml 05/21/25 06:00 Normal Saline Flush 10 Ml Syr IV 05/21/25 23:59 PRN PRN Sodium Chloride 0 ml 05/21/25 06:00 Normal Saline 10 Ml Vial IJ 05/21/25 23:59 DIRECTED PRN Sterile Water 0 ml 05/21/25 06:00 Water,Injection,Sterile 10 Ml Vial IJ 05/21/25 23:59 DIRECTED PRN Tranexamic Acid 1,300 mg 05/21/25 07:10 Tranexamic Acid 650 Mg Tab PO 06/20/25 07:09 ONCE PRN postoperative PFSH Active Problems Active Problems: Problem Status Onset Code Arthritis of right hip Acute M16.11 Migraines Chronic G43.909 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 echo, MR improved to mod to severe Surgical History Surgical History (Updated 05/21/25 @ 08:46 by Chuy Romero RN) History of appendectomy History of cataract extraction History of total right knee replacement (11/15/23) History of total left knee replacement (04/12/23) History of laparoscopic appendectomy DOS 04/10/19 History of hip replacement, total (L) DOS 02/19/20 Tobacco Smoking/Tobacco Use Status: Never Passive smoking exposure: No Alcohol Alcohol Intake: never Substance Use Substance use: Never Substance use type: does not use Vital Signs and Lab Results Lab Results Complete Blood Count: WBC, (4.4-10.8) 4.91 10^3/uL 05/16/25, 11:30 RBC, (3.93-5.22) 3.65 10^6/uL L 05/16/25, 11:30 Hgb, (11.2-15.7) 13.2 g/dL 05/16/25, 11:30 Hct, (36.0-46.0) 38.8 % 05/16/25, 11:30 Plt Count, (130-400) 159 10^3/uL 05/16/25, 11:30 Complete Metabolic Panel: Sodium, (136-145) 144 mmol/L 05/16/25, 11:30 Potassium, (3.5-5.1) 4.1 mmol/L 05/16/25, 11:30 Chloride, (98-107) 108 mmol/L H 05/16/25, 11:30 Carbon Dioxide, (21.0-32.0) 28.9 mmol/L 05/16/25, 11:30 BUN, (7-18) 18 mg/dL 05/16/25, 11:30 Creatinine, (0.55-1.02) 0.8 mg/dL 05/16/25, 11:30 Est GFR (CKD-EPI 2020), (mL/min/1.73m2) 75.37 05/16/25, 11:30 Calcium, (8.5-10.1) 10.2 mg/dL H 05/16/25, 11:30 Glucose, (74-106) 94 mg/dL 05/16/25, 11:30 Imaging and Studies Imaging and Studies Study information below may be from another EMR and interpreted by another provider. Please see original notes in EMR for more complete details. EKG Summary: 04/12/23 ECG Measurements Heart Rate 80 AXIS MS [id number] P [id number] QRSd 106 QRS -17 QT 385 [id number] QTc 445 Conclusion Atrial fibrillation...V-rate 70-102, irreg A-activity Low voltage, extremity leads...all extremity leads <0.5mV Nonspecific T abnormalities, inferior leads...T <-0.10mV, II III aVF Echocardiogram Summary: 05/02/25 RV mildly dilated, LA severely dilated, RA mod. dilated, mod to severe MR, Pulm. pressures mildly elevated, mild to mod pulmonic insuffiency, small circumferential pericardial effusion 04/01/23 Conclusion Normal left ventricular wall thickness and chamber size. Ejection fraction is 55%. Wall motion is normal Normal right ventricular size and systolic function Both atria are moderately dilated Trileaflet aortic valve without stenosis or regurgitation Mildly thickened mitral leaflets with systolic prolapse and moderate to severe regurgitation Normal tricuspid valve with moderate regurgitation. Estimated right ventricular systolic pressure is 27 mmHg Small pericardial effusion Anesthesia Assessment and Plan Anesthesia History Personal History: PONV Family History: No Family History of Anesthesia Complications Exercise Tolerance Exercise Tolerance: Metabolic Equivalents>4 Pertinent Negatives Pertinent Negatives: No Symptoms of GERD, No Major Pulmonary Symptoms or Complaints and No History of CVA/TIA Cardiac & Pulmonary Exam Cardiac Exam: Normal S1/S2 Heart Sounds Pulmonary Exam: Clear Bilateral Breath Sounds Implantable Cardiac Device Does patient have a Pacemaker or an ICD?: No Airway Exam Known Difficult Airway: No Mallampati Class: 2 Mouth Opening: Normal (> 3cm) Thyromental Distance: Greater than 3 cm Neck Range of Motion: Full ROM Neck Circumference: Normal Teeth Condition: Normal Dentition ASA Classification ASA Score: ASA 2 Emergency Case?: No NPO Status NPO Status: NPO Clears >2 hours, Solids >8 hours Anesthesia Plan Resuscitation Status: Full Code Anesthesia Technique: Spinal Anesthesia Airway Planned: Natural Airway Monitors Used: Standard Monitors
[2025-05-21] MEDS: Celecoxib 200 MG CAP 400 MG PO (09:18)
[2025-05-21] MEDS: Acetaminophen 500 MG TAB 1000 MG PO (09:18)
[2025-05-21] MEDS: Lactated Ringers 1,000 ML 80 ML IV (09:30)
[2025-05-21] MEDS: ceFAZolin 2 GM/50 ML BAG IVPB (11:40)
--- NOTE | 2025-05-21 11:55 | W.PM.OP ---
Operative Note Operative Note PRE-OP DIAGNOSIS: Right Hip Osteoarthritis POST-OP DIAGNOSIS: same PROCEDURE: Right Anterior Total Hip Arthroplasty with Intraoperative Navigation SURGEON: Jones Fragoso COAT REPAIR INSPECTOR: Jessica Prasad ANESTHESIA TYPE: General LMA/ETT Refer to Anesthesia Record ESTIMATED BLOOD LOSS: 600 PATHOLOGY: none sent TOURNIQUET TIME: 0 COMPLICATIONS: None Patient was transported to: PACU Patient's condition: stable Implants: 1. Depuy Seaford Acetabular Component, 54mm 2. Depuy Acetabular Liner, [id number] 3. Depuy Actis High Offset Collared Femoral Stem, Size 5 4. Depuy Altrx Ceramic Femoral Head, Size 33+1.5mm Indications: I have seen Mandy in clinic for symptoms of hip arthritis, confirmed with radiographic findings. She has exhausted nonoperative methods and was having significant limitations in daily function and desired better function and less pain. I discussed the technical details of a hip replacement. I explained the risks of the procedure to include, but not limited to, bleeding, infection, pain, stiffness, fracture, damage to nerves and vessels, damage to muscles and tendons, loosening, instability, leg length inequality, need for repeat procedure, blood clot and cardiopulmonary demise. Despite these risks, Mandy elected to proceed. Findings: There was significant signs of arthritis throughout the hip. Procedure Description: Mandy was greeted in the preoperative holding area where the correct side was identified and marked. The consent was reviewed with the patient and signed. The history and physical was updated. All questions were answered. She was taken back to the operating room. A spinal anesthestic was attempted but unsuccessful and thus a general anesthetic was administered. The feet were wrapped with cast padding and Coban and then placed into the boot liners and then into the boots. Care was taken to protect the skin and make sure the heels were fully down and the boots were stable. The patient was then positioned onto the HANA table. Both legs were held in a neutral position. SCDs were applied. The patient was then slid down onto a peroneal post. Prophylactic antibiotics in the form of Cefazolin were administered. 1g of Tranxemic Acid was given intravenously within 30 minutes of incision. The right leg was then prepped with Chloraprep and draped in a standard fashion. A second prep with Chloraprep was performed prior to placement of a shower-curtain type drape with Iodine impregnated skin protection. A timeout to confirm correct identity, side and site, procedure, allergies, anesthesia, and medical concerns was performed. An obliquely oriented incision was made starting lateral to the ASIS and running distal over the Tensor Fascia Natalie (TFL) muscle belly toward the fibular head, approximately 10cm. The skin and soft tissue was dissected sharply, through Buck?s fascia, and to the fascia of the TFL. With the fascia and superior border of the IT band identified, the fascia was incised with a new knife just above any perforators from the IT band. The TFL muscle belly was bluntly dissected away from the fascia and moved laterally. The fat between TFL and rectus was identified to ensure the dissection was not within the TFL. Blunt dissection created space between abductors and the capsule and retractor was placed over the lateral femoral neck. The fibers of the rectus femoris tendon were identified and these were freed from the anterior capsule. A second cobra retractor was placed around the medial femoral neck. The TFL was further retracted laterally to show the deep fascia. Careful dissection through this layer identified three main crossing vessels of the lateral femoral circumflex. These were cauterized in multiple locations and then cut without any noticeable bleeding. The TFL was further released bluntly from the deep fascia to expose anterior hip capsule and fat The soft tissue orthopaedic retractor was then placed beneath the TFL and against sartorius and medial soft tissues to protect and retract the soft tissues. A T-capsulotomy was then performed starting at the superior lateral acetabulum and moving distally to the intertrochanteric ridge. These capsular flaps were tagged with a No. 1 Vicryl and elevated from within. The capsular flaps were released to the shoulder of the lateral neck and to the lesser trochanter to give excellent visualization of the proximal femur. A neck osteotomy was performed using an oscillating saw based on preoperative templates. This cut started in the shoulder and of the lateral neck and exited medially. The saw was at all times directed medially to avoid injury to the greater trochanter. Gross traction was applied to the leg and the osteotomy opened. The femoral head was removed with a corkscrew, making sure to protect the TFL on its exit. Traction was released after head removal. This was measured on the back table to determine the starting reamer size. Portions of the rectus obscuring visualization were minimally elevated off the superior acetabulum. An anterior retractor was placed over the anterior wall between capsule and labrum and attached to the Gripper retraction system. The femur was rotated to 90 degrees and medial capsule was fully released until the lesser trochanter was palpable and visible; the femur was returned to 30 degrees. A posterior retractor was placed similarly between capsule and labrum. This provided excellent visualization. The contents of the cotyloid fossa were removed with electrocautery and the labrum was removed with a knife. There was a notable floor osteophyte. There was significant chondromalacia of the superior acetabulum. There is a lot of synovitis within the hip. This was inflammatory in nature and quite oozy. There was a substantial amount of blood loss simply just from synovectomy and capsular release. Acetabular reaming began with a 49mm reamer. This first reaming was directed anterior to posterior and medial to get down to the true floor. This was inspected and reamed until the true floor was reached. The anterior retractor was then released and entry and exit was provided by traction on the capsular flaps. I then reamed sequentially up to a 54mm reamer where good fit was obtained. The larger reamers were oriented based on anatomical reference of the anterior and lateral cornell to ensure proper abduction and anteversion. Positioning and size was confirmed with the fluoroscopy. A 54mm Depuy Seaford acetabular component was selected. The acetabulum was reamed around the periphery with the selected acetabular size to prevent a rim fit. The deep tissues were irrigated. The acetabular component was then impacted in a position of about 40-45 degrees of abduction and 15-20 degrees of anteversion, using the patient?s anatomy as the ultimate landmark. Fluoroscopy was used to confirm this. There was excellent maintenance department technician of the acetabular component and the inserting handle was removed. The acetabular liner, Depuy [id number] polyethylene liner, was inserted and lined up with the tines of the acetabular component. There was no soft tissue interposition. The liner was then impacted into position and confirmed to be well-seated. A portion of the heavenly-articular cocktail was then injected around the acetabulum into the capsule and periosteum. This cocktail consisted of 123mg of Ropivacaine, 0.25mg of Epinephrine, 0.04mg of Clonidine, and 15mg of Ketorolac, diluted to 50cc. The leg was rotated to 120 degrees. Any remaining medial capsule was released until the lesser trochanter was easily palpable. A retractor was placed medially. The lateral capsule was further released into the shoulder to allow access to the greater trochanter. A Calloway retractor was placed over the greater trochanter which allowed the trochanter to flip in front of the capsule for excellent exposure. The leg was brought down into maximal extension and 20 degrees of adduction while ensuring there was no impingement on the acetabulum. Any remnant capsule within the trochanter was released. Piriformis and obturator externis were identified and protected. There was excellent access to the proximal femur. The lateral neck remnant was removed with a rongeur. A blunt canal probe was used to identify the canal and trajectory for later broaching. A box osteotome initiated the broach course. A small curved rasp and a curved curette were used to work laterally. Broaching then began with a starter Actis broach. This was inserted manually around the trochanter and into the canal before mallet blows. The broach was seated to a few millimeters below the cut level based on the neck cut and the preoperative template. Sequential broaching was continued with the FIGHTER Interactivese pneumatic broaching device until a tight fit was obtained with good rotational control of the femur. A trial standard neck was inserted along with a +8.5 trial head as per the template. The leg was brought out of extension and adduction and then reduced with traction and internal rotation. The leg was stable anteriorly in a position of 30 degrees of extension and 90 degrees of external rotation. Fluoroscopy was used to ensure there was no fracture and the stem was seated well. Leg lengths were checked with an AP pelvis and pelvic reference points. EcoStart navigation system was used to confirm appropriate positioning and leg length and offset. This closely approximated the offset but overcorrected the leg length. To correct this I went to a high offset +1.5 mm stem and head combination and advance the stem 2 to 3 mm. The leg was brought back into extension, external rotation and adduction. The periosteum and surrounding tissue was injected with remaining portion of the heavenly-articular cocktail. The proximal femur was irrigated as well as the deep tissues. The [email or web address] Actis high offset collared stem, size 5, was then manually inserted into the proximal femur making sure to control rotation. It was then malleted into position with light blows, giving breaks to allow bone expansion and decrease risk of fracture. The selected Depuy Altrx Ceramic Head, size 36+1.5mm, was then placed onto the clean and dry trunnion and secured with impaction onto the tapered fit. The leg was brought back out of extension and adduction and reduced with traction and internal rotation. Stability was confirmed with no shuck at 90 degrees of external rotation and 30 degrees of extension. No impingement through range of motion arc. Final x-ray images were obtained with fluoroscopy to confirm adequate positioning and no intraoperative fracture. There was more bleeding than expected. The majority his bleeding seem to be coming from the synovium throughout the hip, especially posteriorly. The bleeding was minimal at the time of closure we did lose more than anticipated. The deep tissues were thoroughly irrigated with Surgiphor, betadine solution. This was allowed to sit in the wound for 3 minutes before being thoroughly irrigated out with normal saline. The capsule was then reapproximated with the previously placed sutures. The TFL fascia was finally closed with a No. 2 Stratafix, barbed suture. Deep tissues were then reapproximated with 0 Vicryl and a running 2-0 Vicryl. The skin was closed with a running 4-0 Monocryl in a subcuticular fashion. This was reinforced with skin glue. A Mepilex silver dressing was applied. At the end of the case, all counts were correct. Mandy was transferred to the hospital bed without difficulty and suffering no apparent complication except for the slightly above average blood loss. Mandy has a good prognosis. Physical therapy will start today and without restrictions, weight-bearing as tolerated. Her home dose of apixaban 5 mg twice daily will be used for DVT prophylaxis. Date of Procedure: 05/21/25
[2025-05-21] MEDS: TRANEXAMIC ACID/SOD. CHL. 1,000 MG/100 ML BAG 600 MG IVPB (12:01)
[2025-05-21] MEDS: ROPIvacaine 0.2% 200 MG/100 ML BAG (12:13)
[2025-05-21] MEDS: Ketorolac 30 MG/ML VIAL (12:13)
[2025-05-21] MEDS: EPINEPHrine 1 MG/ML AMP pres-free (12:13)
--- NOTE | 2025-05-21 12:59 | DI.RAD_ITS ---
Exam(s) XR HIP RT IN OR EXAM: XR HIP RT IN OR CLINICAL HISTORY: Arthritis of right hip TECHNIQUE: 2D and realtime digital imaging was performed. CONTRAST MATERIAL: Refer to procedure report. COMPARISON: CR XR HIP MIN 2V RT from 02/04/2025 CR XR PELVIS AP from 03/25/2025 FINDINGS: Fluoroscopy was provided for Dr. Fragoso during the performance of a right total hip arthroplasty. Please refer to the procedure report for complete details. Ka,r=2.36 mGy IMPRESSION: RADIATION DOSE DELIVERED: 0.0 0.0 0
[2025-05-21] MEDS: ePHEDrine 25 MG/5 ML Syringe IVP (13:25)
--- NOTE | 2025-05-21 13:43 | W.ANESPOSTOP ---
Postoperative Evaluation Date, Time and Location Date Performed: 05/21/25 Time Performed: 13:43 Patient Location: PACU Vital Signs Most Recent Imported Vital Signs: Most Recent Vital Signs Temp Pulse Resp BP Pulse Ox 36.2 C L 65 12 124/70 96 05/21/25 13:29 05/21/25 13:36 05/21/25 13:36 05/21/25 13:36 05/21/25 13:36 Pain Score Most Recent Pain Score: Most Recent Pain Score Pain Level 0 05/21/25 13:29 Assessment Mental Status: Awake (Alert & Oriented to Patient Baseline) Airway and Respiratory Function: Patent airway with normal (patient baseline) respiratory exam Cardiovascular Function: Hemodynamically Stable Hydration Status: Adequately Hydrated Nausea & Vomiting: No Nausea or Vomiting Pain: Pt. Denies Any Pain Peripheral Nerve Block: Patient did not receive a nerve block
[2025-05-21] MEDS: Tranexamic Acid 650 MG TAB 1300 MG PO (14:30)
[2025-05-21] MEDS: oxyCODONE 5 MG TAB PO (14:30)
--- NOTE | 2025-05-21 15:27 | PT.INIE ---
PT Notes Visit Reasons: Right hip DJD Physical Therapy Day Surgery Initial Evaluation Date: 05/21/2025 Referring Doctor: Jessica Prasad NP/ Dr Fragoso PT Orders: PT CONSULT: s/p Ortho surgery Precautions: WBAT R LE, TEDS x 2 weeks Patient Profile/Admitting Diagnosis: Patient is 79-year-old female presenting status post elective right RADHA by Dr. Fragoso on 05/21/2025. 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 Independent ambulation, ADLs, shopping, home management. Equipment Owned/DME: [facility] Subjective: Patient reports in the past she has had episodes of nausea and vomiting after surgery. She states she is concerned but is willing to participate Objective: [] General Observation: Female presented semireclined on stretcher with ice to right hip, friend visiting Mental Status: Alert and oriented x 4, cooperative, able to follow instructions, agreeable to participate in session Pain: Right hip 4/10 with medication ROM: [] Right Upper Extremity: Within normal limits Left Upper Extremity: Within normal limits Right Lower Extremity: Within functional limits Left Lower Extremity: [] Within normal limits Strength: [] Right Upper Extremity: 5/5 Left Upper Extremity: 5/5 Right Lower Extremity: Hip flexion: 3- /5; hip abduction:3- /5; hip extension: 3 /5; knee extension:3 /5; knee flexion: 3- /5 ankle DF: 3 /5 ; ankle PF: 3 /5 Left Lower Extremity: Grossly 5/5 Sensation: Intact Bed Mobility/Transfers: [] Supine to sit SBA Sit to stand SBA cues to push up Stand to sit SBA Bed to chair SBA with FWW Gait: amb with FWW with SBA 100 feet including turns and obstacle management, reduced step length, adequate foot clearance Balance: [] Static Sitting:Normal Dynamic Sitting: good Static Standing: good with FWW Dynamic Standing:fair with UE support Special Tests: [] Mobility Limitations Standardized Measure [] [facility] AM-PAC 6 clicks Basic Mobility Inpatient Short Form: [] Raw Score: 22 CMS Score: 20.91 % Informed Consent/Education: Patient instructed in purpose of PT consult. Treatment: [id number] Packet containing RADHA exercise protocol has been given to patient. Education and training on initial set of 5 reps of exercises that can be done at home have been completed with patient. Assessment: Patient is a 79 yo female who presents with clinical signs and symptoms consistent with current/admitting diagnoses that have resulted to mobility limitations, gait instability, generalized weakness, and impairment of motor control as demonstrated by the following impairment level findings: 1. Decreased strength to right hip major muscle groups 2. Impaired standing balance 3. Limitation of joint range of motion in right hip 4. pain right hip 5. impaired functional activity tolerance Impairments are contributing to the following functional limitations: 1. Inability to safely ambulate without assistive device 2. Increase completion time for mobility ADL performance 3. Increased fall risk 4. impaired bed mobility and transfer skills Patient is assessed as a low complexity based on the following: History: 79-year-old female with impairment level findings, functional limitations, and past medical history as indicated above Examination: Demonstrable impairment in strength, balance, and mobility level with underlying impairments and functional limitations as documented above Presentation:stable/evolving Decision Making: low Goals: N/A. PT evaluation and 1-2 treatment sessions only for functional mobility training using recommended AD and for HEP instruction. Plan of Care/Treatment Plan: N/A. PT evaluation and 1-2 treatment session only for functional mobility training using recommended AD and for HEP instruction. DISCHARGE RECOMMENDATIONS: Home with HEP TREATMENT CODE/TIME:[id number]/ [id number] Thank you for the opportunity to participate in the care of this patient. Bonita Chao, PT [facility]
== END 2025-05-21 16:15 | disposition home or self-care (01) ==
LOC: SUR 08:26
PROVIDERS: PCP Family Medicine; Visit Provider Student in an Organized Health Care Education/Training Program
PROC: (CPT 27130; principal; 2025-05-21 11:15)
DX: M16.11 Unilateral primary osteoarthritis, right hip (principal)
CPT/HCPCS: 20985; 27130; 97110; 97161; 73501; C1776; J0166; J0690; J1100; J1805; J1885; J2003; J2401; J2405; J2704; J2795; J3475

== ENCOUNTER 2025-06-03 11:29 | Outpatient (CLI) | payer MEDICARE, SELFPAY ==
--- NOTE | 2025-06-03 10:15 | DI.RAD_ITS ---
Exam(s) XR HIP RT COMPLETE AP PELVIS EXAM: XR HIP RT COMPLETE AP PELVIS CLINICAL HISTORY: 1ST POST OP S/P R RADHA. TECHNIQUE: 2D digital imaging was performed. Three images were obtained. AP pelvis, AP and lateral right hip views were obtained. COMPARISON: CR XR PELVIS AP from 03/25/2025 XA XR HIP RT IN OR from 05/21/2025 FINDINGS: BONES: There are stable post operative changes of a right total hip arthroplasty present. No fracture or dislocation. The patient has a prior left total hip arthroplasty is incompletely visualized but grossly unremarkable. JOINTS: The orthopedic hardware is in good position. No evidence of hardware loosening. SOFT TISSUE: Calcifications are seen in the pelvis most suggestive of calcified uterine fibroids. IMPRESSION: Stable right total hip arthroplasty. DATA REPOSITORY: RADIATION DOSE DELIVERED:
== END 2025-06-03 11:30 | disposition home or self-care (01) ==
LOC: DIORS 11:29
PROVIDERS: PCP Family Medicine; Referring Provider Family Medicine; Visit Provider Student in an Organized Health Care Education/Training Program
DX: Z47.1 Aftercare following joint replacement surgery (principal); Z96.641 Presence of right artificial hip joint
CPT/HCPCS: 99024; 73502

== ENCOUNTER → 2025-07-04 10:59 | Outpatient (BNVA) | payer MEDICARE, SELFPAY | PROVIDERS: PCP Family Medicine; Referring Provider Family Medicine; Visit Provider Physician Assistant | DX: Z47.1 Aftercare following joint replacement surgery (principal); Z96.641 Presence of right artificial hip joint | CPT/HCPCS: 99024 ==